=== PATIENT | male | born 1965 | race Asian ===

== ENCOUNTER 2023-10-29 05:38 | Inpatient (IN) | payer SELFPAY ==
[2023-10-29 06:01] LABS: Absolute Lymphocytes (CBC) 1.5 K/uL (0.7-4.9); Hematocrit 35.3 % (39.6-49.0); Lymphocytes % 24.7 % (15.3-44.8); MCV 84.8 fL (80-100); MPV 7.8 fL (7.6-11.3); Platelets 351 thou/uL (152-406); RBC Red Blood Cell Count 4.17 M/uL (4.33-5.43)
[2023-10-29 06:15] LABS: Protime INR 0.9
[2023-10-29 06:20] LABS: ALT/SGPT 15 U/L (16-61); AST/SGOT 11 U/L (15-37); Albumin 2.6 g/dL (3.4-5.0); Alkaline Phosphatase 64 U/L (45-117); BUN Blood Urea Nitrogen 37 mg/dL (7-18); Bicarbonate 28 mEq/L (21-32); Bilirubin Total 0.2 mg/dL (0.2-1.0); Glomerular Filtration Rate 38 ml/min (=/>90); Glucose Level 357 mg/dL (74-106); Potassium 3.6 mEq/L (3.5-5.1); Protein, Total 6.7 g/dL (6.4-8.2); Sodium Level 133 mEq/L (136-145)
[2023-10-29 06:28] LABS: Bilirubin Direct < 0.1 mg/dL (0-0.2); Bilirubin Indirect, Calculated ND mg/dL (0.2-0.8)
[2023-10-29 06:32] LABS: Troponin High Sensitivity 432.5 pg/mL (<58.9)
--- NOTE | 2023-10-29 06:59 | ER ---
Nurse's Notes [facility] Name: Jonathan Pimentel Age: 58 yrs Sex: Male : 1965 Arrival Date: 10/29/2023 Time: 05:38 Bed 4 Private MD: Diagnosis: Transient ischemic attack;NSTEMI Presentation: 10/29 05:42 Chief complaint: Spouse and/or significant other states: reports he started having km8 dizziness around 0030 today, went to sleep then woke up recently still having dizziness, left eye is blurry, unsteady gait, and left facial droop. Coronavirus screen: Client denies travel out of the [place] in the last 14 days. Ebola Screen: No symptoms or risks identified at this time. Initial Sepsis Screen: Does the patient meet any 2 criteria? No. Patient's initial sepsis screen is negative. Does the patient have a suspected source of infection? No. Patient's initial sepsis screen is negative. Risk Assessment: Do you want to hurt yourself or someone else? Patient reports no desire to harm self or others. Onset of symptoms was October 29, 2023 at 00:30. 05:42 Method Of Arrival: Wheelchair km8 05:42 Acuity: CELESTE 2 km8 Triage Assessment: 05:44 General: Appears in no apparent distress. comfortable, Behavior is calm, cooperative, km8 appropriate for age. Pain: Denies pain. EENT: No signs and/or symptoms were reported regarding the EENT system. Neuro: Level of Consciousness is awake, alert, obeys commands, Oriented to person, place, time, situation, Weakness in left leg(s) Facial droop on left, Reports blurred vision in left eye dizziness. Cardiovascular: Capillary refill < 3 seconds Patient's skin is warm and dry. Respiratory: Airway is patent Respiratory effort is even, unlabored, Respiratory pattern is regular, symmetrical. GI: No signs and/or symptoms were reported involving the gastrointestinal system. : No signs and/or symptoms were reported regarding the genitourinary system. Derm: No signs and/or symptoms reported regarding the dermatologic system. Skin is intact, is healthy with good turgor, Skin is dry, Skin is pink, warm \T\ dry. normal, Skin temperature is warm. Musculoskeletal: Circulation, motion, and sensation intact. Range of motion: intact in all extremities, Reports weakness in left leg. Historical: - Allergies: 05:44 No Known Allergies; km8 - Home Meds: 05:44 None [Active]; km8 - PMHx: 05:44 None; km8 - PSHx: 05:44 None; km8 - Immunization history:: Client reports receiving the 2nd dose of the Covid vaccine, Flu vaccine is not up to date. - Social history:: Smoking status: Patient denies any tobacco usage or history of. Patient/guardian denies using alcohol, street drugs. Screenin:46 [facility] ED Fall Risk Assessment (Adult) History of falling in the last 3 months, km8 including since admission No falls in past 3 months (0 pts) Confusion or Disorientation No (0 pts) Intoxicated or Sedated No (0 pts) Impaired Gait Yes (1 pt) Mobility Assist Device Used No (0 pt) Altered Elimination No (0 pt) Score/Fall Risk Level 0 - 2 = Low Risk Oriented to surroundings, Maintained a safe environment, Educated pt \T\ family on fall prevention, incl call for assistance when getting out of bed, Assessed \T\ reinforced patient's understanding of fall precautions. Abuse screen: Denies threats or abuse. Denies injuries from another. Nutritional screening: No deficits noted. Tuberculosis screening: No symptoms or risk factors identified. 06:07 VAN Screening:. Anni Swallow Protocol Exclusion Criteria: Unable to remain alert for km8 testing: No NPO for medical/surgical reason by provider order No Head-of-bed restricted <30 degrees Tracheostomy tube present No No thin liquids due to preexisting dysphagia/baseline modified diet thickened liquids No Exclusion Criteria Result: Proceed Brief Cognitive Screen What is your name? Normal, Where are you right now? Normal, What year is it? Normal. Oral Mechanism Examination Facial Symmetry: Abnormal: left mouth droop. Motion: Normal, Lip Closure: Normal, Oral Mechanism Result: Abnormal: left mouth droop; ok to proceed. 3 oz Water Swallow Challenge: Pt able to drink all water without stopping, coughing, choking or throat clearing: Yes Result: PASS. Assessment: 05:46 General: see triage note/assessment. km8 07:00 Reassessment: Patient appears in no apparent distress at this time. No changes from km8 previously documented assessment. Patient and/or family updated on plan of care and expected duration. Pain level reassessed. Patient is alert, oriented x 3, equal unlabored respirations, skin warm/dry/pink. 07:26 Reassessment: No changes from previously documented assessment. Patient and/or family ap3 updated on plan of care and expected duration. Pain level reassessed. General: Appears in no apparent distress. Behavior is calm, cooperative, appropriate for age. Pain: Denies pain. Neuro: Level of Consciousness is awake, alert, obeys commands, Oriented to person, place, time, situation, Speech is normal. Cardiovascular: Patient's skin is warm and dry. Respiratory: Airway is patent Respiratory effort is even, unlabored, Respiratory pattern is regular, symmetrical. 08:51 General: report called to receiving nurse. ap3 Vital Signs: 05:42 BP 217 / 99; Pulse 62; Resp 16; Temp 97.1(IR); Pulse Ox 97% on R/A; Weight 62.6 kg (M); km8 Height 5 ft. 4 in. (R); Pain 0/10; 05:53 BP 204 / 89; Pulse 64; Resp 16; Pulse Ox 99% ; km8 06:00 BP 207 / 93; Pulse 60; Resp 16; Pulse Ox 98% on R/A; km8 06:30 BP 199 / 93; Pulse 59; Resp 16; Pulse Ox 97% on R/A; km8 07:27 BP 194 / 94; Pulse 59; Pulse Ox 96% on R/A; ap3 08:08 BP 188 / 93; Pulse 57; Pulse Ox 99% on R/A; ap3 08:41 BP 149 / 73; Pulse 58; Resp 15; Pulse Ox 98% on R/A; ap3 05:42 Body Mass Index 23.69 (62.60 kg, 162.56 cm) km8 05:42 Pain Scale: Adult km8 Y[place] Coma Score: 05:46 Eye Response: spontaneous(4). Motor Response: obeys commands(6). Verbal Response: km8 oriented(5). Total: 15. NIH Stroke Scale Scores: 06:04 NIHSS Score: 2 rt 06:11 NIHSS Score: 3 km8 ED Course: 05:42 Patient arrived in ED. km8 05:44 Triage completed. km8 05:44 Arm band placed on right wrist. km8 05:46 Fco Cartagena MD is Attending Physician. rt 05:46 Patient has correct armband on for positive identification. Bed in low position. Call km8 light in reach. Side rails up X2. front desk monitor on. Pulse ox on. NIBP on. Warm blanket given. 05:46 No provider procedures requiring assistance completed. Inserted saline lock: 18 gauge km8 in right antecubital area, using aseptic technique. Blood collected. 05:[address] by RN. km8 06:03 CT Head Angio In Process Unspecified. EDMS 06:03 CT Neck Angio In Process Unspecified. EDMS 06:04 CT Stroke Brain w/o Contrast In Process Unspecified. EDMS 06:34 Stroke CXR 1 View In Process Unspecified. EDMS 06:58 Taras Kohler MD is Hospitalizing Provider. rt 08:52 Provided Education on: need for admission. ap3 08:52 Patient admitted, IV remains in place. ap3 Administered Medications: 07:26 Drug: Aspirin PO 325 mg PO once Route: PO; ap3 08:52 Follow up: Response: No adverse reaction ap3 07:31 Not Given (Other Intervention Used): mg PO once la1 07:36 Drug: Atenolol PO 100 mg PO once Route: PO; ap3 08:52 Follow up: Response: Blood pressure is lowered ap3 07:36 Drug: HydrALAZINE PO 50 mg PO once Route: PO; ap3 08:52 Follow up: Response: Blood pressure is lowered ap3 08:52 Follow up: Response: Blood pressure is lowered ap3 Medication: 05:46 VIS not applicable for this client. km8 Point of Care Testing: Blood Glucose: 06:07 Blood Glucose: 321 mg/dL; km8 Ranges: Outcome: 06:58 Decision to Hospitalize by Provider. rt 08:51 Admitted to Med/surg accompanied by tech, via wheelchair, room 222, with chart, ap3 08:51 Condition: good 08:51 Instructed on the need for admit, 08:54 Patient left the ED. ap3 NIH Stroke Scale - NIH Stroke Score Date: 10/29/2023 Time: 06:04 Total Score = 2 10. Dysarthria (speech clarity - read or repeat words) - 1(Mild to Moderate) 11. Extinction and Inattention (visual/tactile/auditory/spatial/personal) - 0(No abnormality) 1a. Level of Consciousness (LOC) - 0(Alert) 1b. Level of Consciousness (LOC) (Month \T\ Age) - 0(Both) 1c. LOC Commands (Open \T\ Closes Eyes/Yarn Salvager) - 0(Both) 2. Best Gaze (Lateral Gaze Paresis) - 0(Normal) 3. Visual Field Loss - 0(No visual loss) 4. Facial Palsy - 1(Minor Paralysis) 5a. Left Arm: Motor (10-second hold) - 0(No drift) 5b. Right Arm: Motor (10-second hold) - 0(No drift) 6a. Left Leg: Motor (5-second hold - always test supine) - 0(No drift) 6b. Right Leg: Motor (5-second hold - always test supine) - 0(No drift) 7. Limb Ataxia (finger/nose \T\ heel/alicia - test with eyes open) - 0(Absent) 8. Sensory Loss (pinprick arms/legs/face) - 0(Normal) 9. Best Language: Aphasia (description/naming/reading) - 0(No aphasia) Initials: rt NIH Stroke Scale - NIH Stroke Score Date: 10/29/2023 Time: 06:11 Total Score = 3 10. Dysarthria (speech clarity - read or repeat words) - 0(Normal) 11. Extinction and Inattention (visual/tactile/auditory/spatial/personal) - 0(No abnormality) 1a. Level of Consciousness (LOC) - 0(Alert) 1b. Level of Consciousness (LOC) (Month \T\ Age) - 1(One) 1c. LOC Commands (Open \T\ Closes Eyes/Yarn Salvager) - 0(Both) 2. Best Gaze (Lateral Gaze Paresis) - 0(Normal) 3. Visual Field Loss - 0(No visual loss) 4. Facial Palsy - 1(Minor Paralysis) 5a. Left Arm: Motor (10-second hold) - 0(No drift) 5b. Right Arm: Motor (10-second hold) - 0(No drift) 6a. Left Leg: Motor (5-second hold - always test supine) - 0(No drift) 6b. Right Leg: Motor (5-second hold - always test supine) - 0(No drift) 7. Limb Ataxia (finger/nose \T\ heel/alicia - test with eyes open) - 0(Absent) 8. Sensory Loss (pinprick arms/legs/face) - 1(Mild to moderate loss) 9. Best Language: Aphasia (description/naming/reading) - 0(No aphasia) Initials: km8 Signatures: Dispatcher [employer] Lety Blair, RN RN ap3 Fco Cartagena MD MD rt Trini Queen RN RN km8 Too Cortes [facility]
--- NOTE | 2023-10-29 06:59 | EDPHYS ---
Physician Documentation [facility] Name: Jonathan Pimentel Age: 58 yrs Sex: Male : 1965 Arrival Date: 10/29/2023 Time: 05:38 Bed 4 Private MD: ED Physician Fco Cartagena HPI: 10/29 06:04 This 58 yrs old Male presents to ER via Wheelchair with complaints of Dizziness, rt left-sided facial droop, left-sided numbness. 06:04 Patient has a history of hypertension, hyperlipidemia, diabetes, states that he has not rt been taking his medications for some time. The patient reportedly noticed dizziness at about 1230, subsequently went to bed. The patient woke up just prior to arrival, he had a left-sided facial droop, left-sided numbness as well as a slurred speech. Denies other acute complaints at this time, symptoms are moderate in severity, no other aggravating or alleviating factors.. Historical: - Allergies: 05:44 No Known Allergies; km8 - Home Meds: 05:44 None [Active]; km8 - PMHx: 05:44 None; km8 - PSHx: 05:44 None; km8 - Immunization history:: Client reports receiving the 2nd dose of the Covid vaccine, Flu vaccine is not up to date. - Social history:: Smoking status: Patient denies any tobacco usage or history of. Patient/guardian denies using alcohol, street drugs. ROS: 06:04 Constitutional: Negative for fever, chills, and weight loss, Cardiovascular: Negative rt for chest pain, palpitations, and edema, Respiratory: Negative for shortness of breath, cough, wheezing, and pleuritic chest pain, Abdomen/GI: Negative for abdominal pain, nausea, vomiting, diarrhea, and constipation, MS/Extremity: Negative for injury and deformity, Skin: Negative for injury, rash, and discoloration, 06:04 Eyes: Positive for blurry vision, Negative for pain, 06:04 Neuro: Positive for numbness, speech changes, Exam: 06:04 Constitutional: This is a well developed, well nourished patient who is awake, alert, rt and in no acute distress. Chest/axilla: Normal chest wall appearance and motion. Nontender with no deformity. No lesions are appreciated. Cardiovascular: Regular rate and rhythm with a normal S1 and S2. No gallops, murmurs, or rubs. Normal PMI, no JVD. No pulse deficits. Respiratory: Lungs have equal breath sounds bilaterally, clear to auscultation and percussion. No rales, rhonchi or wheezes noted. No increased work of breathing, no retractions or nasal flaring. Abdomen/GI: Soft, non-tender, with normal bowel sounds. No distension or tympany. No guarding or rebound. No evidence of tenderness throughout. Skin: Warm, dry with normal turgor. Normal color with no rashes, no lesions, and no evidence of cellulitis. MS/ Extremity: Pulses equal, no cyanosis. Neurovascular intact. Full, normal range of motion. 06:04 Eyes: Extraocular muscles intact, no visual field deficit. 06:04 ECG was reviewed by the Attending Physician. 06:04 Neuro: Left-sided facial droop, dysarthria noted, no other speech changes, strength and sensation intact in upper and lower extremities, Vital Signs: 05:42 BP 217 / 99; Pulse 62; Resp 16; Temp 97.1(IR); Pulse Ox 97% on R/A; Weight 62.6 kg (M); [facility] Height 5 ft. 4 in. (R); Pain 0/10; 05:53 BP 204 / 89; Pulse 64; Resp 16; Pulse Ox 99% ; 8 06:00 BP 207 / 93; Pulse 60; Resp 16; Pulse Ox 98% on R/A; [facility] 06:30 BP 199 / 93; Pulse 59; Resp 16; Pulse Ox 97% on R/A; 8 07:27 BP 194 / 94; Pulse 59; Pulse Ox 96% on R/A; ap3 08:08 BP 188 / 93; Pulse 57; Pulse Ox 99% on R/A; ap3 08:41 BP 149 / 73; Pulse 58; Resp 15; Pulse Ox 98% on R/A; ap3 05:42 Body Mass Index 23.69 (62.60 kg, 162.56 cm) [facility] 05:42 Pain Scale: Adult [facility] NIH Stroke Scale Scores: 06:04 NIHSS Score: 2 rt 06:11 NIHSS Score: 3 [facility] [place] Coma Score: 05:46 Eye Response: spontaneous(4). Motor Response: obeys commands(6). Verbal Response: km8 oriented(5). Total: 15. MDM: 05:46 Patient medically screened. rt 06:58 Differential Diagnosis TIA, CVA, NSTEMI, cardiac event, dysrhythmia. Data reviewed: rt vital signs, nurses notes, lab test result(s), EKG, radiologic studies. Consideration of Admission/Observation Patient was admitted/placed on observation. Management of patient was discussed with the following: Hospitalist: Agrees to admit. I considered the following discharge prescriptions or medication management in the emergency department Medications were administered in the Emergency Department. See MAR. Independent interpretation of the following test(s) in the Emergency Department CT Scan: My interpretation is No intracranial hemorrhage syndrome interpretation of CT scan image. Discussion of test interpretation with radiology: I had a discussion with radiology regarding a test interpretation. CT angio is negative. Counseling: I had a detailed discussion with the patient and/or guardian regarding the historical points, exam findings, and any diagnostic results supporting the discharge/admit diagnosis, lab results, radiology results, the need for further work-up and treatment in the hospital. Response to treatment: the patient's symptoms have markedly improved after treatment. 10/29 05:46 Order name: Basic Metabolic Panel; Complete Time: 06:36 rt 10/29 05:46 Order name: CBC with Diff; Complete Time: 06:36 rt 10/29 05:46 Order name: Hepatic Function; Complete Time: 06:36 rt 10/29 05:46 Order name: High Sensitivity Troponin; Complete Time: 06:36 rt 10/29 05:46 Order name: Magnesium; Complete Time: 06:36 rt 10/29 05:46 Order name: Protime (+inr); Complete Time: 06:36 rt 10/29 05:46 Order name: Ptt, Activated; Complete Time: 06:36 rt 10/29 06:19 Order name: Glucose, Ancillary Testing; Complete Time: 06:36 EDMS 10/29 05:46 Order name: CT Head Angio rt 10/29 05:46 Order name: CT Neck Angio rt 10/29 05:46 Order name: CT Stroke Brain w/o Contrast rt 10/29 05:46 Order name: Stroke CXR 1 View rt 10/29 07:36 Order name: Echo with Doppler EDMS 10/29 07:36 Order name: Brain Wo Cont EDMS 10/29 05:46 Order name: EKG; Complete Time: 05:47 rt 10/29 07:35 Order name: CONS Physician Consult EDMS 10/29 05:46 Order name: Accucheck; Complete Time: 06:07 rt 10/29 05:46 Order name: Cardiac monitoring; Complete Time: 05:48 rt 10/29 05:46 Order name: EKG - Nurse/Tech; Complete Time: 06:01 rt 10/29 05:46 Order name: IV Saline Lock; Complete Time: 05:48 rt 10/29 05:46 Order name: Labs collected and sent; Complete Time: 05:48 rt 10/29 05:46 Order name: NPO; Complete Time: 05:48 rt 10/29 05:46 Order name: O2 Per Protocol; Complete Time: 05:48 rt 10/29 05:46 Order name: O2 Sat Monitoring; Complete Time: 05:48 rt 10/29 05:46 Order name: Stroke Swallow Screen; Complete Time: 06:07 rt EC:04 Rate is 62 beats/min. Rhythm is regular, 1st Degree Block with No ectopy. QRS [place] is rt Normal. ID interval is normal. QRS interval is normal. QT interval is normal. No Q waves. Clinical impression: NSR w/ Non-specific ST/T Changes. Administered Medications: 07:26 Drug: Aspirin PO 325 mg PO once Route: PO; ap3 08:52 Follow up: Response: No adverse reaction ap3 07:31 Not Given (Other Intervention Used): [id number] mg PO once la1 07:36 Drug: Atenolol PO 100 mg PO once Route: PO; ap3 08:52 Follow up: Response: Blood pressure is lowered ap3 07:36 Drug: HydrALAZINE PO 50 mg PO once Route: PO; ap3 08:52 Follow up: Response: Blood pressure is lowered ap3 08:52 Follow up: Response: Blood pressure is lowered ap3 Point of Care Testing: Blood Glucose: 06:07 Blood Glucose: 321 mg/dL; km8 Ranges: Critical Glucose Levels:Adult <50 mg/dl or >400 mg/dl <40 mg/dl or >180 mg/dl Disposition Summary: 10/29/23 06:58 Hospitalization Ordered Notes: Hospitalization Status: Observation rt Provider: Taras Kohler rt Location: Telemetry/MedSurg (observation) rt Condition: Stable rt Problem: new rt Symptoms: have improved rt Bed/Room Type: Standard rt Room Assignment: 222(10/29/23 08:17) hb Diagnosis - Transient ischemic attack rt - NSTEMI rt Forms: - Medication Reconciliation Form rt - SBAR form rt - Leadership Thank You Letter rt NIH Stroke Scale - NIH Stroke Score Date: 10/29/2023 Time: 06:04 Total Score = 2 10. Dysarthria (speech clarity - read or repeat words) - 1(Mild to Moderate) 11. Extinction and Inattention (visual/tactile/auditory/spatial/personal) - 0(No abnormality) 1a. Level of Consciousness (LOC) - 0(Alert) 1b. Level of Consciousness (LOC) (Month \T\ Age) - 0(Both) 1c. LOC Commands (Open \T\ Closes Eyes/Food And Beverage Controller) - 0(Both) 2. Best Gaze (Lateral Gaze Paresis) - 0(Normal) 3. Visual Field Loss - 0(No visual loss) 4. Facial Palsy - 1(Minor Paralysis) 5a. Left Arm: Motor (10-second hold) - 0(No drift) 5b. Right Arm: Motor (10-second hold) - 0(No drift) 6a. Left Leg: Motor (5-second hold - always test supine) - 0(No drift) 6b. Right Leg: Motor (5-second hold - always test supine) - 0(No drift) 7. Limb Ataxia (finger/nose \T\ heel/alicia - test with eyes open) - 0(Absent) 8. Sensory Loss (pinprick arms/legs/face) - 0(Normal) 9. Best Language: Aphasia (description/naming/reading) - 0(No aphasia) Initials: rt NIH Stroke Scale - NIH Stroke Score Date: 10/29/2023 Time: 06:11 Total Score = 3 10. Dysarthria (speech clarity - read or repeat words) - 0(Normal) 11. Extinction and Inattention (visual/tactile/auditory/spatial/personal) - 0(No abnormality) 1a. Level of Consciousness (LOC) - 0(Alert) 1b. Level of Consciousness (LOC) (Month \T\ Age) - 1(One) 1c. LOC Commands (Open \T\ Closes Eyes/Food And Beverage Controller) - 0(Both) 2. Best Gaze (Lateral Gaze Paresis) - 0(Normal) 3. Visual Field Loss - 0(No visual loss) 4. Facial Palsy - 1(Minor Paralysis) 5a. Left Arm: Motor (10-second hold) - 0(No drift) 5b. Right Arm: Motor (10-second hold) - 0(No drift) 6a. Left Leg: Motor (5-second hold - always test supine) - 0(No drift) 6b. Right Leg: Motor (5-second hold - always test supine) - 0(No drift) 7. Limb Ataxia (finger/nose \T\ heel/alicia - test with eyes open) - 0(Absent) 8. Sensory Loss (pinprick arms/legs/face) - 1(Mild to moderate loss) 9. Best Language: Aphasia (description/naming/reading) - 0(No aphasia) Initials: km8 Signatures: Dispatcher [employer] EDMS Too Cortes, HIGH RIGGER-C HIGH RIGGER-Cla1 Kayleen Mccormick RN RN hb Lety Peña RN RN ap3 Fco Cartagena MD MD rt Trini Queen RN RN km8 Corrections: (The following items were deleted from the chart) 08:17 06:58 rt hb
[2023-10-29] MEDS ORDERED: ASPIRIN 81 MG CHEWABLE TABLET ONE (07:15)
[2023-10-29] MEDS ORDERED: HYDRALAZINE HCL 25 MG TABLET ONE (07:33)
[2023-10-29] MEDS ORDERED: atenoloL 50 MG TAB ONE (07:34)
--- NOTE | 2023-10-29 08:28 | RAD REPORT ---
EXAM DESCRIPTION: RAD - Chest Single View - 10/29/2023 6:32 am CLINICAL HISTORY: cva Chest pain. COMPARISON: No comparisons FINDINGS: Portable technique limits examination quality. The lungs are grossly clear. The heart is normal in size. No displaced fractures. IMPRESSION: No acute intrathoracic process suspected.
[2023-10-29] MEDS ORDERED: ONDANSETRON 4 MG/2 ML VIAL IV PRN (09:49)
[2023-10-29] MEDS: HYDRALAZINE HCL 25 MG TABLET PO SCH ×2 (10:15→21:11)
[2023-10-29] MEDS: NA CHLORIDE 0.9% 1,000 ML IV SCH ×2 (10:34→23:53)
[2023-10-29] MEDS: AMLODIPINE 10 MG TAB PO SCH (10:35)
[2023-10-29] MEDS: ASPIRIN EC 81 MG TAB PO SCH (10:35)
[2023-10-29] MEDS: CLOPIDOGREL 75 MG TABLET PO SCH (10:35)
[2023-10-29] MEDS: FOLIC ACID 1 MG TABLET PO SCH (10:35)
[2023-10-29] MEDS: HEPARIN 5000 UNIT/ML 1 ML VIAL SQ SCH ×2 (10:36→21:11)
--- NOTE | 2023-10-29 11:25 | P.CNS ---
Date of Consult: 10/29/23 Reason for Consult: ANDREA/ CKD Requesting Physician: Taras Kohler Chief Complaint: Dizziness History of Present Illness: 06:04 This 58 yrs old Male presents to ER via Wheelchair with complaints of Dizziness, rt left-sided facial droop, left-sided numbness. 06:04 Patient has a history of hypertension, hyperlipidemia, diabetes, states that he has not rt been taking his medications for some time. The patient reportedly noticed dizziness at about 1230, subsequently went to bed. The patient woke up just prior to arrival, he had a left-sided facial droop, left-sided numbness as well as a slurred speech. Denies other acute complaints at this time, symptoms are moderate in severity, no other aggravating or alleviating factors.. 58-year-old male with history of hypertension, hyperlipidemia, pvb-rgwhcco-wdfolryyh diabetes, iron deficiency anemia and likely some degree of CKD presented to the emergency department chief complaint of left-sided facial droop, unsteady gait, dysarthria. He reports that he took a shower around midnight and after the shower was having dizziness, trouble walking and subsequently went to sleep. When he woke up in the morning his symptoms had worsened, for that reason his family brought him to the emergency department. He was underwent for TNK and his symptoms seem to be improving. He was evaluated in the emergency department CT of his head without contrast was negative for acute findings, CT angiogram of the head and neck showed no large vessel occlusions or other stenotic findings. Labs were significant for a creatinine of 2.0, glucose 357 initial high sensitive troponin 432.5. No labs available for comparison of creatinine although family does mention that his primary care doctor had discussed some degree of elevated kidney function in the past. He denies NSAIDs. He denies difficulty with urination. He reports being told about his kidneys in the past. No known family hx of CKD. Allergies No Known Allergies Allergy (Unverified 10/29/23 08:16) Home medications list reviewed: Yes - Past Medical/Surgical History Diabetic: Yes -: HTN -: DM II -: HLD -: CKD (Dr. Patricia/ Dr. Whatley) - Family History Brother Medical History: Hypertension, Diabetes, Stroke - Social History Smoking Status: Never smoker Alcohol use: Yes CD- Drugs: No Review of Systems 10-point ROS is otherwise unremarkable General: Weakness, Malaise Physical Examination General: In no apparent distress, Oriented x3, Cooperative HEENT: Atraumatic Neck: Supple Respiratory: Clear to auscultation bilaterally Cardiovascular: No edema, Regular rate/rhythm Gastrointestinal: Soft and benign, Non-distended Musculoskeletal: No clubbing, No contractures Integumentary: No rashes, No cyanosis Neurological: Normal speech Laboratory Data (last 24 hrs) 10/29/23 10/29/23 10/29/23 05:52 05:52 05:52 WBC 6.30 Hgb 12.1 L Hct 35.3 L Plt Count 351 PT 9.9 INR 0.90 APTT 35.7 Sodium 133 L Potassium 3.6 BUN 37 H Creatinine 2.00 H Glucose 357 H Magnesium 2.0 Total Bilirubin 0.2 AST 11 L ALT 15 L Alkaline Phosphatase 64 Imagings Data: EXAM DESCRIPTION: RAD - Chest Single View - 10/29/2023 6:32 am CLINICAL HISTORY: cva Chest pain. COMPARISON: No comparisons FINDINGS: Portable technique limits examination quality. The lungs are grossly clear. The heart is normal in size. No displaced fractures. IMPRESSION: No acute intrathoracic process suspected. Conclusions/Impression: Stage I ANDREA CKD III with Proteinuria -No NSAIDs; caution with IVC -Contiinue IVF with NS -Renal US pending Hyponatremia -Continue IVF with NS HTN with CKD -Continue Atenolol -Continue Hydralazine -Continue Amlodipine DM II with CKD -RISS Hypoalbuminemia -Consider protein supplementation -Check urine protein Anemia in chronic illness -Monitor H&H Hospitalist and ER notes reviewed Thank you kindly for the consultation
--- NOTE | 2023-10-29 12:01 | P.HP ---
Certification for Inpatient Patient admitted to: Inpatient With expected LOS: >2 Midnights Patient will require the following post-hospital care: None Practitioner: I am a practitioner with admitting privileges, knowledge of patient current condition, hospital course, and medical plan of care. Services: Services provided to patient in accordance with Admission requirements found in Title 42 Section 412.3 of the Code of Federal Regulations Patient History Date of Service: 10/29/23 Reason for admission: Dizziness History of Present Illness: 58-year-old male with history of hypertension, hyperlipidemia, hde-hilunpe-fborryekp diabetes, iron deficiency anemia and likely some degree of CKD presented to the emergency department chief complaint of left-sided facial droop, unsteady gait, dysarthria. He reports that he took a shower around midnight and after the shower was having dizziness, trouble walking and subsequently went to sleep. When he woke up in the morning his symptoms had worsened, for that reason his family brought him to the emergency department. He was underwent for TNK and his symptoms seem to be improving. He was evaluated in the emergency department CT of his head without contrast was negative for acute findings, CT angiogram of the head and neck showed no large vessel occlusions or other stenotic findings. Labs were significant for a creatinine of 2.0, glucose 357 initial high sensitive troponin 432.5. No labs available for comparison of creatinine although family does mention that his primary care doctor had discussed some degree of elevated kidney function in the past. 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 moist/pink Neck: Supple, 2+ carotid pulse no bruit, No LAD Respiratory: Clear to auscultation bilaterally, Normal air movement Cardiovascular: Regular rate/rhythm, Normal S1 S2 Gastrointestinal: Normal bowel sounds, No tenderness Musculoskeletal: No tenderness Integumentary: No rashes Neurological: Normal gait, Normal speech, Normal strength at 5/5 x4 extr, Normal affect, Other (NIH score 0) - Studies Laboratory Data (last 24 hrs) 10/29/23 10/29/23 10/29/23 05:52 05:52 05:52 WBC 6.30 Hgb 12.1 L Hct 35.3 L Plt Count 351 PT 9.9 INR 0.90 APTT 35.7 Sodium 133 L Potassium 3.6 BUN 37 H Creatinine 2.00 H Glucose 357 H Magnesium 2.0 Total Bilirubin 0.2 AST 11 L ALT 15 L Alkaline Phosphatase 64 Assessment and Plan - Plan Assessment: Left-sided facial droop, dysarthria, ataxia-improved suspect TIA NSTEMI Hypertension ANDREA/CKD Diabetes most type ODbqt-uynfmod-gagnfxtes with hyperglycemia Hyperlipidemia Plan: Left-sided facial droop, dysarthria, ataxia-improved suspect TIA NIH score currently 0-did not receive TNK MRI, echocardiogram ordered CT head and neck angio negative for stenotic findings/large vessel occlusion Continue aspirin, statin, Plavix, folic acid Neurology consult, PT consult NSTEMI Possibly demand ischemia related to significant uncontrolled hypertension Denies chest pain Monitor on telemetry, trend troponins Continue with aspirin, statin, Plavix Cardiology consult in place, echocardiogram ordered Hypertension Home atenolol, hydralazine, amlodipine continued May require further titration ANDREA/CKD Unknown renal function baseline Family does report him being told in the past he had some elevated kidney function Continue gentle IV fluids, nephrology consult Diabetes most type EMbpp-tkxehvh-moicxesrh with hyperglycemia ACHS Accu-Chek, sliding scale insulin A1c in the morning Hyperlipidemia Continue statin DVT PPX: Lovenox Code status: Full Discharge Plan: Home Plan to discharge in: 48 Hours - Advance Directives Does patient have a Living Will: No Does patient have a Durable POA for Healthcare: No - Code Status/Comfort Care Code Status Assessed: Yes (Full code) Critical Care: No Time Spent Managing Pts Care (In Minutes): 70
[2023-10-29] MEDS: INSULIN REGULAR (HUMAN) 100 UNIT/ML SQ SCH ×3 (12:20→21:11)
[2023-10-29 13:18] LABS: Phosphorus 3.4 mg/dL (2.5-4.9)
--- NOTE | 2023-10-29 13:31 | RAD REPORT ---
EXAM DESCRIPTION: US - Renal Ultrasound-Complete - 10/29/2023 1:21 pm CLINICAL HISTORY: omkar Flank pain COMPARISON: No comparisons FINDINGS: Both kidneys are normal in size, shape and echotexture. The right kidney measures 10.3 x 6.5 x 6.4 cm. No hydronephrosis, focal mass or perinephric fluid. The left kidney measures 10.6 x 5.5 x 4.8 cm. No hydronephrosis, focal mass or perinephric fluid. The urinary bladder is incompletely distended without gross abnormality seen. IMPRESSION: Unremarkable renal sonogram.
[2023-10-29 13:32] LABS: Troponin High Sensitivity 448.2 pg/mL (<58.9)
[2023-10-29 13:43] VITALS: BMI 23.5
[2023-10-29] MEDS ORDERED: INFLUENZA VACCINE (for 6+ mo) 0.5 ML DOSE IMVAC ONE (14:00)
[2023-10-29 18:19] LABS: Specific Gravity > 1.030 (1.005-1.030); Urine Bacteria None Seen /HPF (<20); Urine Bilirubin NEGATIVE (Negative); Urine Blood Negative (Negative); Urine Clarity Clear (Clear); Urine Color Colorless (Yellow); Urine Glucose 4+ (Over) (Negative); Urine Protein 3+ (Negative); Urine RBC <5 /HPF (None Seen); Urine Urobilinogen Normal (Normal)
[2023-10-29] MEDS: ATORVASTATIN 40 MG TAB PO SCH (21:11)
--- NOTE | 2023-10-29 21:33 | RAD REPORT ---
EXAM DESCRIPTION: ADDENDUM #1 Critical findings were discussed with and acknowledged by Dr. Fco Cartagena on 10/29/2023 6:32 AM PENSION ADVISER . Electronically signed by: Travis Whalen MD 10/29/2023 06:45 AM PENSION ADVISER End of Addendum CLINICAL HISTORY: STROKE ALERT COMPARISON: None. TECHNIQUE: CT HEAD WITHOUT IV CONTRAST on 10/29/2023 5:46 AM PENSION ADVISER This exam was performed according to our departmental dose-optimization program, which includes autom ated exposure control, adjustment of the mA and/or kV according to patient size and/or use of iterati ve reconstruction technique. FINDINGS: There is no acute hemorrhage, mass effect or midline shift. There is a small old lacunar i nfarct in the right caudate head. There is no hydrocephalus. There is no significant volume loss for age. The calvarium is intact. Orbits and globes are unremarkable. There is moderate thickening of the left maxillary sinus. Mastoid air cells are clear. IMPRESSION: No acute intracranial findings. Electronically signed by: Travis Whalen MD 10/29/2023 06:16 AM PENSION ADVISER Due to temporary technical issues with the PACS/Fluency reporting system, reports are being signed by the in house radiologists without review as a courtesy to insure prompt reporting. The interpreting radiologist is fully responsible for the content of the report.
--- NOTE | 2023-10-29 21:37 | RAD REPORT ---
EXAM DESCRIPTION: ADDENDUM #1 Critical findings were discussed with and acknowledged by Dr. Fco Cartagena on 10/29/2023 6:32 AM POCKET STITCHER . Electronically signed by: Travis Whalen MD 10/29/2023 06:44 AM POCKET STITCHER End of Addendum CLINICAL HISTORY: STROKE ALERT COMPARISON: None. TECHNIQUE: CT HEAD ANGIOGRAPHY WITH IV CONTRAST, CT NECK ANGIOGRAPHY WITH IV CONTRAST on 10/29/2023 5: 46 AM POCKET STITCHER This exam was performed according to our departmental dose-optimization program, which includes autom ated exposure control, adjustment of the mA and/or kV according to patient size and/or use of iterati ve reconstruction technique. MIP reconstructions were generated. Stenoses are calculated by NASCET criteria. FINDINGS: The visualized aortic arch and origins of the great vessels unremarkable. Left thyroid nod ule measures 3.2 cm. The common carotid arteries are patent and symmetric bilaterally. No hemodynamically significant stenosis is observed at the common carotid bifurcations or origins of the internal carotid arteries bilaterally. Vertebral arteries are unremarkable without evidence of pseudoaneurysm, hemodynamically significant s tenosis, or dissection. Intracranially the cavernous segments of the internal carotid arteries are patent and symmetric bilat erally. Vertebral basilar system within normal limits for age. No aneurysm identified within the [place]. Anterior, middle, and posterior cerebral circulat ions are patent and symmetric bilaterally. Dural sinuses are well opacified and without filling defect. IMPRESSION: Unremarkable CT angiogram of the neck for age without dissection or hemodynamically sign ificant stenosis. Unremarkable CTA of the brain without evidence of hemodynamically significant stenosis, aneurysm or A VM. 3.2 cm incidental left thyroid nodule. Recommend non-emergent thyroid ultrasound. Reference: J Am Kris Radiol. 2015 Nov;12(2): 143-50 CAROTID STENOSIS REFERENCE USING NASCET CRITERIA: % ICA stenosis = (1 - narrowest ICA diameter/diameter of distal cervical ICA) x 100. Mild - <50% stenosis. Moderate - 50-69% stenosis. Severe - 70-94% stenosis. Near occlusion - 95-99% stenosis. Occluded - 100% stenosis. Electronically signed by: Travis Whalen MD 10/29/2023 06:29 AM POCKET STITCHER Due to temporary technical issues with the PACS/Fluency reporting system, reports are being signed by the in house radiologists without review as a courtesy to insure prompt reporting. The interpreting radiologist is fully responsible for the content of the report.
--- NOTE | 2023-10-29 21:38 | RAD REPORT ---
EXAM DESCRIPTION: ADDENDUM #1 Critical findings were discussed with and acknowledged by Dr. Fco Cartagena on 10/29/2023 6:32 AM BEHAVIORAL ANALYST . Electronically signed by: Travis Whalen MD 10/29/2023 06:44 AM BEHAVIORAL ANALYST End of Addendum CLINICAL HISTORY: STROKE ALERT COMPARISON: None. TECHNIQUE: CT HEAD ANGIOGRAPHY WITH IV CONTRAST, CT NECK ANGIOGRAPHY WITH IV CONTRAST on 10/29/2023 5: 46 AM BEHAVIORAL ANALYST This exam was performed according to our departmental dose-optimization program, which includes autom ated exposure control, adjustment of the mA and/or kV according to patient size and/or use of iterati ve reconstruction technique. MIP reconstructions were generated. Stenoses are calculated by NASCET criteria. FINDINGS: The visualized aortic arch and origins of the great vessels unremarkable. Left thyroid nod ule measures 3.2 cm. The common carotid arteries are patent and symmetric bilaterally. No hemodynamically significant stenosis is observed at the common carotid bifurcations or origins of the internal carotid arteries bilaterally. Vertebral arteries are unremarkable without evidence of pseudoaneurysm, hemodynamically significant s tenosis, or dissection. Intracranially the cavernous segments of the internal carotid arteries are patent and symmetric bilat erally. Vertebral basilar system within normal limits for age. No aneurysm identified within the [place]. Anterior, middle, and posterior cerebral circulat ions are patent and symmetric bilaterally. Dural sinuses are well opacified and without filling defect. IMPRESSION: Unremarkable CT angiogram of the neck for age without dissection or hemodynamically sign ificant stenosis. Unremarkable CTA of the brain without evidence of hemodynamically significant stenosis, aneurysm or A VM. 3.2 cm incidental left thyroid nodule. Recommend non-emergent thyroid ultrasound. Reference: J Am Kris Radiol. 2015 Nov;12(2): 143-50 CAROTID STENOSIS REFERENCE USING NASCET CRITERIA: % ICA stenosis = (1 - narrowest ICA diameter/diameter of distal cervical ICA) x 100. Mild - <50% stenosis. Moderate - 50-69% stenosis. Severe - 70-94% stenosis. Near occlusion - 95-99% stenosis. Occluded - 100% stenosis. Electronically signed by: Travis Whalen MD 10/29/2023 06:29 AM BEHAVIORAL ANALYST Due to temporary technical issues with the PACS/Fluency reporting system, reports are being signed by the in house radiologists without review as a courtesy to insure prompt reporting. The interpreting radiologist is fully responsible for the content of the report.
[2023-10-30 03:26] LABS: Absolute Lymphocytes (CBC) 1.8 K/uL (0.7-4.9); Hematocrit 33.9 % (39.6-49.0); Lymphocytes % 28.9 % (15.3-44.8); MCV 85.4 fL (80-100); MPV 8.1 fL (7.6-11.3); Platelets 290 thou/uL (152-406); RBC Red Blood Cell Count 3.97 M/uL (4.33-5.43)
[2023-10-30 03:53] LABS: Magnesium 1.9 mg/dL (1.6-2.4); Potassium 3.7 mEq/L (3.5-5.1); Thyroid Stimulating Hormone 1.28 uIU/mL (0.358-3.740)
[2023-10-30] MEDS: atenoloL 50 MG TAB PO SCH (06:09)
[2023-10-30] MEDS: INSULIN REGULAR (HUMAN) 100 UNIT/ML SQ SCH ×4 (07:30→20:25)
[2023-10-30] MEDS: HYDRALAZINE HCL 25 MG TABLET PO SCH ×2 (09:08→20:25)
[2023-10-30] MEDS: CLOPIDOGREL 75 MG TABLET PO SCH (09:08)
[2023-10-30] MEDS: ASPIRIN EC 81 MG TAB PO SCH (09:09)
[2023-10-30] MEDS: AMLODIPINE 10 MG TAB PO SCH (09:09)
[2023-10-30] MEDS: FOLIC ACID 1 MG TABLET PO SCH (09:09)
[2023-10-30] MEDS: HEPARIN 5000 UNIT/ML 1 ML VIAL SQ SCH ×2 (09:11→20:25)
--- NOTE | 2023-10-30 10:07 | P.PN ---
Date of Service: 10/30/23 Subjective: Developed some diplopia overnight Ambulatory with minimal to no assistance Have difficulty with left leg ROS: 10 point ROS as noted above, otherwise negative Physical exam GEN: Alert, oriented, NAD HEENT: Normal conjunctiva, sclera anicteric CV: Regular rate and rhythm, no edema Pulm: Nonlabored respirations on room air ABD: Soft, nontender, nondistended MSK: No joint tenderness Integumentary: No rashes Neuro: Normal speech, normal affect, upper visual [place] diminished bilaterally, diplopia present primarily farsighted Vitals reviewed Problem List Assessment: Left-sided facial droop, dysarthria, ataxia-improved suspect TIA NSTEMI Hypertension ANDREA/CKD Diabetes most type SUrns-mahcuyl-kzvhnfmyr with hyperglycemia Hyperlipidemia Plan: Left-sided facial droop, dysarthria, ataxia-improved suspect TIA NIH score currently 0-did not receive TNK MRI, echocardiogram ordered CT head and neck angio negative for stenotic findings/large vessel occlusion Continue aspirin, statin, Plavix, folic acid Neurology consult, PT consult Developed diplopia-primarily effecting far sight Upper visual [place] diminished jessy NSTEMI Possibly demand ischemia related to significant uncontrolled hypertension Denies chest pain, Monitor on telemetry troponins trended flat Continue with aspirin, statin, Plavix Cardiology consult in place, echocardiogram ordered Hypertension Home atenolol, hydralazine, amlodipine continued May require further titration ANDREA/CKD Unknown renal function baseline Family does report him being told in the past he had some elevated kidney fun ction Continue gentle IV fluids, nephrology consult some improvement overnight Diabetes most type PWwlg-dilffjx-mitqmatna with hyperglycemia ACHS Accu-Chek, sliding scale insulin A1c still pending Hyperlipidemia Continue statin DVT PPX: Lovenox Code status: Reel Cart Operator Spent Managing Pts Care (In Minutes): 35
[2023-10-30 10:28] VITALS: O2SAT 98
[2023-10-30] MEDS: NA CHLORIDE 0.9% 1,000 ML IV SCH (12:44)
[2023-10-30] MEDS: ATORVASTATIN 40 MG TAB PO SCH (20:25)
[2023-10-31 01:10] LABS: Specific Gravity 1.009 (1.005-1.030); Urine Bacteria None Seen /HPF (<20); Urine Bilirubin NEGATIVE (Negative); Urine Blood Negative (Negative); Urine Clarity Clear (Clear); Urine Color Colorless (Yellow); Urine Glucose 4+ (Over) (Negative); Urine Mucus Slight /HPF (None Seen); Urine Protein 2+ (Negative); Urine RBC None Seen /HPF (None Seen); Urine Urobilinogen Normal (Normal)
[2023-10-31] MEDS: NA CHLORIDE 0.9% 1,000 ML IV SCH (01:29)
[2023-10-31 02:15] LABS: UR PROTEIN 144.8 mg/dL (<11.9); Urine Protein/Creatinine Ratio 3.71 ratio (<0.15)
[2023-10-31 03:33] LABS: Hematocrit 33.1 % (39.6-49.0); MCV 84.9 fL (80-100)
[2023-10-31 03:34] LABS: Absolute Lymphocytes (CBC) 1.6 K/uL (0.7-4.9); MPV 8.2 fL (7.6-11.3); Platelets 278 thou/uL (152-406)
[2023-10-31 03:36] LABS: Magnesium 2.1 mg/dL (1.6-2.4)
[2023-10-31] MEDS: atenoloL 50 MG TAB PO SCH (05:27)
[2023-10-31] MEDS: INSULIN REGULAR (HUMAN) 100 UNIT/ML SQ SCH ×4 (07:30→20:51)
[2023-10-31] MEDS ORDERED: HYDRALAZINE HCL 20 MG/ML VIAL IV PRN (08:22)
[2023-10-31] MEDS: INSULIN GLARGINE 100 UNIT/ML SQ SCH (09:00)
[2023-10-31] MEDS ORDERED: REGADENOSON 0.4 MG/5 ML SYR IV ONE (09:02)
--- NOTE | 2023-10-31 09:41 | RAD REPORT ---
EXAM DESCRIPTION: MRI - Brain Wo Cont - 10/31/2023 9:12 am CLINICAL HISTORY: CVA vs TIA, left sided weakness, dizziness, gait Headache, drowsiness, CVA symptomology COMPARISON: Head angio dated 10/29/2023; Ct Stroke Brain Wo Cont dated 10/29/2023 TECHNIQUE: Multi-sequence, multiplanar MR imaging of the brain was performed without contrast. FINDINGS: No intracranial hemorrhage, hydrocephalus or extra-axial fluid collections.Mild brain atro phy. No edema or shift of midline structures. No findings to suspect brain mass. 8 mm acute CVA is se en along the right medial midbrain. Midline structures are normally formed. Mastoid air cells and paranasal sinuses are clear. IMPRESSION: Nonhemorrhagic 8 mm acute CVA right medial midbrain.
--- NOTE | 2023-10-31 11:31 | CON ---
Date of Consultation: 10/31/2023 Reason For Consultation: Elevated troponin. History Of Present Illness: A 58-year-old male, history of dyslipidemia, diabetes, hypertension, and chronic kidney disease, presented with left-sided facial droop, unsteady gait, and denied having any chest pain, no shortness of breath. Troponin was slightly elevated upon arrival and he was diagnose d with acute stroke and he denies having any chest pain. Past Medical History: As outlined above in the HPI. Medications: Refer to reconciliation sheet for detailed list. Allergies: NO KNOWN DRUG ALLERGIES. Family History: No premature coronary artery disease or cancer. Social History: Does not smoke or drink. Does not use any drugs. Review of Systems: All systems reviewed and they are negative except as mentioned in HPI. Physical Examination: Vital Signs: Reviewed. Head and Neck: Pupils are equal, reactive to light. Intact eye movements. No JVD. No cervical lym phadenopathy. Neck is supple. Thyroid is not enlarged. Lungs: Clear to auscultation bilaterally. No rhonchi, rales, or crackles. No accessory muscle use. Heart: Regular rate and rhythm. No extra sounds. Abdomen: Soft, nontender. Bowel sounds positive. No organomegaly. No masses or hernia. No rigidi ty or rebound. Extremities: No clubbing or cyanosis. Intact pulses. Skin: No rash. No eczema. Neurologic: Alert, awake, oriented x3 with left-sided weakness. Lymph Nodes: No cervical or axillary lymphadenopathy. Investigations: CT angiogram of the neck is unremarkable and troponin was 432, down to 417. Assessment/recommendation: 1.Elevated troponin. This is likely due to the acute stroke. He does not have any chest pain. He will need a stress test once he recover from the stroke. In the interim, recommend baby aspirin and obtain an echocardiogram. 2.Acute CVA. Obtain an echo and monitor on telemetry for atrial fibrillation and Neurology evaluati on. SR/MODL Voice ID: [id number] Report ID: [id number]
[2023-10-31] MEDS: AMLODIPINE 10 MG TAB PO SCH (12:12)
[2023-10-31] MEDS: ASPIRIN EC 81 MG TAB PO SCH (12:15)
[2023-10-31] MEDS: HYDRALAZINE HCL 25 MG TABLET PO SCH ×2 (12:15→20:50)
[2023-10-31] MEDS: CLOPIDOGREL 75 MG TABLET PO SCH (12:15)
[2023-10-31] MEDS: HEPARIN 5000 UNIT/ML 1 ML VIAL SQ SCH ×2 (12:16→20:50)
[2023-10-31] MEDS: FOLIC ACID 1 MG TABLET PO SCH (12:16)
--- NOTE | 2023-10-31 12:27 | EKG ---
Test Date: 2023-10-29 Test Time: 05:44:04 Senior Systems Programmer: IMELDA MEASUREMENT RESULTS: Intervals: Rate: 62 IA: 212 QRSD: 98 QT: 416 QTc: 422 Peck: P: 75 IA: 212 QRS: 58 T: -34 INTERPRETIVE STATEMENTS: Sinus rhythm with 1st degree AV block T wave abnormality, consider inferior ischemia Abnormal ECG No previous ECG available for comparison Electronically Signed On 10-31-23 12:21:00 JANITORIAL ACCOUNT MANAGER by Tra Ellsworth
--- NOTE | 2023-10-31 12:49 | P.PN ---
Date of Service: 10/31/23 Subjective: Diplopia improved overnight, ambulating to bathroom ROS: 10 point ROS as noted above, otherwise negative Physical exam GEN: Alert, oriented, NAD HEENT: Normal conjunctiva, sclera anicteric CV: Regular rate and rhythm, no edema Pulm: Nonlabored respirations on room air ABD: Soft, nontender, nondistended MSK: No joint tenderness Integumentary: No rashes Neuro: Normal speech, normal affect, upper visual [place] diminished bilaterally, diplopia present primarily farsighted, mildly abn left heel to alicia Vitals reviewed Problem List Left-sided facial droop, dysarthria, ataxia secondary to 8 mm acute CVA right medial midbrain NSTEMI Hypertension ANDREA/CKD Diabetes most type FFceg-ikxzgza-gnqunqjle with hyperglycemia Hyperlipidemia Plan: Left-sided facial droop, dysarthria, ataxia secondary to 8 mm acute CVA right medial midbrain NIH score currently 0-did not receive TNK CT head and neck angio negative for stenotic findings/large vessel occlusion Continue aspirin, statin, Plavix, folic acid Neurology consult, PT consult Developed diplopia-primarily effecting far sight-resolved 10/31 Upper visual [place] diminished jessy NSTEMI Possibly demand ischemia related to significant uncontrolled hypertension Denies chest pain, Monitor on telemetry troponins trended flat Continue with aspirin, statin, Plavix Cardiology consult in place, echocardiogram ordered Was planned for stress test but with acute CVA this was deferred await echo Hypertension Home atenolol, hydralazine, amlodipine continued May require further titration ANDREA/CKD Unknown renal function baseline Family does report him being told in the past he had some elevated kidney function Continue gentle IV fluids, nephrology consult some improvement overnight nephrology suspects CKD 3 Diabetes most type QMzfi-jcroicb-zzqbymdtu with hyperglycemia ACHS Accu-Chek, sliding scale insulin A1c 13.1 Started on long acting insulin-Semglee 10/31 Hyperlipidemia Continue statin DVT PPX: Lovenox Code status: Foundation Coordinator Spent Managing Pts Care (In Minutes): 35 <Too Cortes - Last Filed: 10/31/23 12:46> Patient seen and examined on rounds this morning. Plan of care discussed with WELDER/INSTALLER Sophia. Agree with plan as noted above with the following additions/corrections: MRI positive for 8 mm acute CVA of the right medial midbrain Patient with abnormal ekbw-vu-dmlg testing of left leg, mild No longer having double vision Otherwise has been ambulating much better MRI findings would be consistent with exam Discussed with patient and his at bedside Recommended tight glycemic control, will need insulin on discharge Continue antihypertensives, titrate as appropriate Cardiology recommended obtaining echocardiogram today <Taras Kohler - Last Filed: 10/31/23 17:01>
--- NOTE | 2023-10-31 14:02 | ECHO ---
HEIGHT: 5 ft 4 in WEIGHT: 137 lb 9.095 oz DATE OF STUDY: 10/31/[address]: Too Cortes NP 2-DIMENSIONAL: YES M.MODE: YES DOPPLER: YES COLOR FLOW: YES TDS: PORTABLE: YES DEFINITY: BUBBLE STUDY: DIAGNOSIS: NON ST ELEVATION MYOCARDIAL INFARCTION, TRANSIENT ISCHEMIC ATTACK CARDIAC HISTORY: CATHERIZATION: NO SURGERY: NO PROSTHETIC VALVE: NO PACEMAKER: NO MEASUREMENTS (cm) DIASTOLIC (NORMALS) SYSTOLIC (NORMALS) IVSd 1.0 (0.6-1.2) LA Diam 3.7 (1.9-4.0) LVEF 63% LVIDd 4.4 (3.5-5.7) LVIDs 2.9 (2.0-3.5) %FS 34% LVPWd 1.0 (0.6-1.2) Ao Diam 2.8 (2.0-3.7) 2 DIMENSIONAL ASSESSMENT: RIGHT ATRIUM: NORMAL LEFT ATRIUM: NORMAL RIGHT VENTRICLE: NORMAL LEFT VENTRICLE: NORMAL TRICUSPID VALVE: MILD TRICUSPID REGURGITATION MITRAL VALVE: MILD MITRAL REGURGITATION PULMONIC VALVE: NORMAL AORTIC VALVE: MILD AORTIC INSUFFICIENCY PERICARDIAL EFFUSION: NONE AORTIC ROOT: NORMAL LEFT VENTRICULAR WALL MOTION: NORMAL DOPPLER/COLOR FLOW: SEE BELOW COMMENTS: 1. NORMAL LEFT VENTRICULAR EJECTION FRACTION 60-65% WITH NORMAL WALL MOTION 2. GRADE I DIASTOLIC DYSFUNCTION 3. MILD MITRAL REGURGITATION, TRICUSPID REGURGITATION, AORTIC INSUFFICIENCY TECHNOLOGIST: EDMAR COON
[2023-10-31] MEDS: ATORVASTATIN 40 MG TAB PO SCH (20:50)
--- NOTE | 2023-10-31 20:58 | P.PN ---
Date of Service: 10/31/23 Vital Signs Temp Pulse Resp BP Pulse Ox 98.2 F 63 16 171/79 H 98 10/31/23 16:00 10/31/23 16:00 10/31/23 16:00 10/31/23 16:00 10/31/23 16:00 Medications Amlodipine Besylate (Amlodipine 10 Mg Tab) 10 mg PO DAILY [facility] Last Admin: 10/31/23 12:12 Dose: 10 mg Aspirin (Aspirin Ec 81 Mg Tab) 81 mg PO DAILY [facility] Last Admin: 10/31/23 12:15 Dose: 81 mg Atenolol (Atenolol 50 Mg Tab) 100 mg PO [id number] [facility] Last Admin: 10/31/23 05:27 Dose: 100 mg Atorvastatin Calcium (Atorvastatin 40 Mg Tab) 40 mg PO BEDTIME [facility] Last Admin: 10/30/23 20:25 Dose: 40 mg Clopidogrel Bisulfate (Clopidogrel 75 Mg Tablet) 75 mg PO DAILY [facility] Last Admin: 10/31/23 12:15 Dose: 75 mg Folic Acid (Folic Acid 1 Mg Tablet) 1 mg PO DAILY [facility] Last Admin: 10/31/23 12:16 Dose: 1 mg Heparin Sodium (Porcine) (Heparin 5000 Unit/Ml 1 Ml Vial) 5,000 unit SQ Q12HR [facility] Last Admin: 10/31/23 12:16 Dose: 5,000 unit Hydralazine HCl (Hydralazine Hcl 25 Mg Tablet) 50 mg PO BID [facility] Last Admin: 10/31/23 12:15 Dose: 50 mg Hydralazine HCl (Hydralazine Hcl 20 Mg/Ml Vial) 10 mg IV Q6HP PRN PRN Reason: SBP >180 MMHG Insulin Glargine (Insulin Glargine 100 Unit/Ml) 15 unit SQ DAILY [facility] Last Admin: 10/31/23 09:00 Dose: Not Given Insulin Human Regular (Insulin Regular (Human) 100 Unit/Ml) 0 unit SQ [facility]; Protocol Last Admin: 10/31/23 17:02 Dose: 5 unit Ondansetron HCl (Ondansetron 4 Mg/2 Ml Vial) 4 mg IV Q6HP PRN PRN Reason: NAUSEA / VOMITING Ramipril (Ramipril 2.5 Mg Cap) 2.5 mg PO BEDTIME [facility] Assessment/ Plan: Nephrology Feeling better No dyspnea No chest pain No acute events overnight Vitals, medications, blood work and imaging reviewed in the chart General: In no apparent distress, Oriented x3, Cooperative HEENT: Atraumatic Neck: Supple Respiratory: Clear to auscultation bilaterally Cardiovascular: No edema, Regular rate/rhythm Gastrointestinal: Soft and benign, Non-distended Musculoskeletal: No clubbing, No contractures Integumentary: No rashes, No cyanosis Neurological: Normal speech Laboratory Data (last 24 hrs) 10/29/23 10/29/23 10/29/23 05:52 05:52 05:52 WBC 6.30 Hgb 12.1 L Hct 35.3 L Plt Count 351 PT 9.9 INR 0.90 APTT 35.7 Sodium 133 L Potassium 3.6 BUN 37 H Creatinine 2.00 H Glucose 357 H Magnesium 2.0 Total Bilirubin 0.2 AST 11 L ALT 15 L Alkaline Phosphatase 64 Imagings Data: EXAM DESCRIPTION: RAD - Chest Single View - 10/29/2023 6:32 am CLINICAL HISTORY: cva Chest pain. COMPARISON: No comparisons FINDINGS: Portable technique limits examination quality. The lungs are grossly clear. The heart is normal in size. No displaced fractures. IMPRESSION: No acute intrathoracic process suspected. darrenrice EXAM DESCRIPTION: US - Renal Ultrasound-Complete - 10/29/2023 1:21 pm CLINICAL HISTORY: andrea Flank pain COMPARISON: No comparisons FINDINGS: Both kidneys are normal in size, shape and echotexture. The right kidney measures 10.3 x 6.5 x 6.4 cm. No hydronephrosis, focal mass or perinephric fluid. The left kidney measures 10.6 x 5.5 x 4.8 cm. No hydronephrosis, focal mass or perinephric fluid. The urinary bladder is incompletely distended without gross abnormality seen. IMPRESSION: Unremarkable renal sonogram. darrenrice LEFT VENTRICULAR WALL MOTION: NORMAL DOPPLER/COLOR FLOW: SEE BELOW COMMENTS: 1. NORMAL LEFT VENTRICULAR EJECTION FRACTION 60-65% WITH NORMAL WALL MOTION 2. GRADE I DIASTOLIC DYSFUNCTION 3. MILD MITRAL REGURGITATION, TRICUSPID REGURGITATION, AORTIC INSUFFICIENCY Conclusions/Impression: Stage I ANDREA CKD III with Proteinuria -No NSAIDs; caution with IVC -DC IVF -Renal US reviewed Hyponatremia, resolved -Maintain nutrition HTN with CKD/ CHF -Continue Atenolol -Continue Hydralazine -Continue Amlodipine -Start Ramipril qhs; titrate as needed Diastolic CHF, chronic -Low sodium diet DM II with CKD -RISS Hypoalbuminemia -Consider protein supplementation Anemia in chronic illness -Monitor H&H Hospitalist note reviewed Case reviewed with hospitalist team
[2023-11-01 02:59] LABS: Absolute Lymphocytes (CBC) 1.7 K/uL (0.7-4.9); Hematocrit 36.3 % (39.6-49.0); Lymphocytes % 15.4 % (15.3-44.8); MCV 85.4 fL (80-100); MPV 8.1 fL (7.6-11.3); Platelets 334 thou/uL (152-406); RBC Red Blood Cell Count 4.25 M/uL (4.33-5.43)
[2023-11-01 03:25] LABS: Potassium 3.8 mEq/L (3.5-5.1); Uric Acid 4.7 mg/dL (3.5-7.2)
[2023-11-01] MEDS: atenoloL 50 MG TAB PO SCH (05:48)
[2023-11-01 07:00] LABS: Hepatitis B Surface Ab - Quant 4.96 mIU/mL (<8.0); Hepatitis B surface AG Interp. Nonreactive (Nonreactive); Hepatitis C Virus Ab Nonreactive (Nonreactive)
[2023-11-01] MEDS: AMLODIPINE 10 MG TAB PO SCH (09:13)
[2023-11-01] MEDS: CLOPIDOGREL 75 MG TABLET PO SCH (09:13)
[2023-11-01] MEDS: HYDRALAZINE HCL 25 MG TABLET PO SCH (09:13)
[2023-11-01] MEDS: HEPARIN 5000 UNIT/ML 1 ML VIAL SQ SCH (09:13)
[2023-11-01] MEDS: ASPIRIN EC 81 MG TAB PO SCH (09:13)
[2023-11-01] MEDS: FOLIC ACID 1 MG TABLET PO SCH (09:13)
[2023-11-01] MEDS: INSULIN REGULAR (HUMAN) 100 UNIT/ML SQ SCH (09:14)
[2023-11-01] MEDS: INSULIN GLARGINE 100 UNIT/ML SQ SCH (09:14)
[2023-11-01 12:27] VITALS: BP 135/63; TEMP 98.7
--- NOTE | 2023-11-01 15:31 | P.DS ---
Admission Date: 10/29/23 Discharge Date: 11/01/23 Disposition: ROUTINE DISCHARGE Discharge Condition: GOOD Reason for Admission: Dizziness Brief History of Present Illness: Diagnosis Left-sided facial droop, dysarthria, ataxia secondary to 8 mm acute CVA right medial midbrain NSTEMI Hypertension ANDREA/CKD Diabetes most type [id number] with hyperglycemia Hyperlipidemia HPI 10/29/23 58-year-old male with history of hypertension, hyperlipidemia, agm-nuptmpi-[id number] diabetes, iron deficiency anemia and likely some degree of CKD presented to the emergency department chief complaint of left-sided facial droop, unsteady gait, dysarthria. He reports that he took a shower around midnight and after the shower was having dizziness, trouble walking and subsequently went to sleep. When he woke up in the morning his symptoms had worsened, for that reason his family brought him to the emergency department. He was underwent for TNK and his symptoms seem to be improving. He was evaluated in the emergency department CT of his head without contrast was negative for acute findings, CT angiogram of the head and neck showed no large vessel occlusions or other stenotic findings. Labs were significant for a creatinine of 2.0, glucose 357 initial high sensitive troponin 432.5. No labs available for comparison of creatinine although family does mention that his primary care doctor had discussed some degree of elevated kidney function in the past. ED provider wishes to admit for further evaluation management of suspected TIA, ANDREA, NSTEMI Hospital Course: Jonathan Pimentel is a pleasant 58 year old male with a past medical history significant for hypertension, hyperlipidemia, sxr-tsgaqpg-otllqogcc diabetes, iron deficiency anemia and likely some degree of CKD who was admitted to the [facility] on 10/29/23 for TIA, ANDREA, NSTEMI. Jonathan Pimentel presented to the ED with symptoms of left-sided facial droop, unsteady gait, and dysarthria. CT of his head without contrast was negative for acute findings, CT angiogram of the head and neck showed no large vessel occlusions or other stenotic findings. He was started on aspirin, statin, Plavix, and folic acid with neurology and PT consulted. He developed diplopia- primarily effecting far sight which resolved 10/31 but with upper visual newton are diminished bilaterally. Nonhemorrhagic 8 mm acute CVA right medial midbrain was reported on the MRI 10/31/23. Cardiology consulted due to elevated troponin levels. Per Dr. Ellsworth's consult note he believes this is due to the recent s troke. He recommends outpatient stress test once recovered from the stroke. Echocardiogram reports "1. NORMAL LEFT VENTRICULAR EJECTION FRACTION 60-65% WITH NORMAL WALL MOTION 2. GRADE I DIASTOLIC DYSFUNCTION, 3. MILD MITRAL REGURGITATION, TRICUSPID REGURGITATION, AORTIC INSUFFICIENCY, with EF of 63%. He experienced hypertensive disorder and was started on Norvasc, atenolol, and hydralazine for better control. He will need to follow-up with his PCP for continued titration of antihypertensives. He is awake, ambulating independently, tolerating p.o. diet, hemodynamically stable, and ready for discharge. On 11/01/23, Jonathan was seen on morning rounds and deemed medically stable for discharge. Jonathan was discharged with instructions to schedule follow-up appointments with Dr. Ellsworth, Dr. Celeste, and PCP. Jonathan was provided prescriptions for Ramipril, hydralazine, folic acid, metformin, Lipitor, Norvasc, Plavix, aspirin, and atenolol with instructions to monitor his blood pressure three times daily. The patient and family members were given the opportunity to ask questions and reported no further questions. Furthermore, all questions were answered to the best of my ability. A copy of this discharge summary will be sent to the above providers to facilitate continuity of care. Today, I personally spent 55 minutes with Jonathan, of which greater than 50% of the time was spent in patient education, counseling, and coordination of care as described above. Physical exam GEN: Alert, oriented, NAD HEENT: Normal conjunctiva, sclera anicteric CV: Regular rate and rhythm, S1 and S2 present, no edema Pulm: Nonlabored respirations on room air, symetrical chest wall movement ABD: Soft, nontender, nondistended MSK: No joint tenderness Integumentary: No rashes Neuro: Normal speech, normal affect, upper visual newton diminished bilaterally, diplopia present primarily farsighted, mildly abn left heel to alicia Vital Signs/Physical Exam: Temp Pulse Resp BP Pulse Ox 98.7 F 65 16 135/63 96 11/01/23 12:00 11/01/23 12:00 11/01/23 12:00 11/01/23 12:00 11/01/23 12:00 Laboratory Data at Discharge: WBC 11.00 thou/uL (4.3-10.9) H 11/01/23 02:15 Hgb 12.3 g/dL (13.6-17.9) L D 11/01/23 02:15 Hct 36.3 % (39.6-49.0) L 11/01/23 02:15 Plt Count 334 thou/uL (152-406) 11/01/23 02:15 PT 9.9 SECONDS (9.5-12.5) 10/29/23 05:52 INR 0.90 10/29/23 05:52 APTT 35.7 SECONDS (24.3-36.9) 10/29/23 05:52 Sodium 141 mEq/L (136-145) 11/01/23 02:15 Potassium 3.8 mEq/L (3.5-5.1) 11/01/23 02:15 BUN 29 mg/dL (7-18) H 11/01/23 02:15 Creatinine 1.72 mg/dL (0.70-1.30) H 11/01/23 02:15 Glucose 107 mg/dL (74-106) H 11/01/23 02:15 Uric Acid 4.7 mg/dL (3.5-7.2) 11/01/23 02:15 Phosphorus 3.4 mg/dL (2.5-4.9) 10/29/23 12:43 Magnesium 2.0 mg/dL (1.6-2.4) 11/01/23 02:15 Total Bilirubin 0.2 mg/dL (0.2-1.0) 10/29/23 05:52 AST 11 U/L (15-37) L 10/29/23 05:52 ALT 15 U/L (16-61) L 10/29/23 05:52 Alkaline Phosphatase 64 U/L (45-117) 10/29/23 05:52 Triglycerides 174 mg/dL (<150) H 10/30/23 03:04 Cholesterol 343 mg/dL (<200) H 10/30/23 03:04 HDL Cholesterol 53 mg/dL (40-60) 10/30/23 03:04 Cholesterol/HDL Ratio 6.47 10/30/23 03:04 Home Medications: Amlodipine [Norvasc*] 10 mg PO DAILY 30 Days #30 tab 11/01/23 Atorvastatin Calcium [Lipitor] 40 mg PO BEDTIME 30 Days #30 tab 11/01/23 Clopidogrel Bisulfate [Plavix*] 75 mg PO DAILY 30 Days #30 tab 11/01/23 Folic Acid 1 mg PO DAILY 30 Days #30 tab 11/01/23 Hydralazine [Apresoline*] 50 mg PO BID 30 Days #30 tab 11/01/23 Metformin ER [Glucophage ER*] 500 mg PO DAILY 30 Days #30 tab.sa 11/01/23 atenoloL [Tenormin*] 100 mg PO [id number] 30 Days #30 tab 11/01/23 ramipriL [Altace*] 2.5 mg PO BEDTIME 30 Days #30 cap 11/01/23 New Medications: ramipriL [Altace*] 2.5 mg PO BEDTIME 30 Days #30 cap Hydralazine [Apresoline*] 50 mg PO BID 30 Days #30 tab Folic Acid 1 mg PO DAILY 30 Days #30 tab Metformin ER [Glucophage ER*] 500 mg PO DAILY 30 Days #30 tab.sa Atorvastatin Calcium [Lipitor] 40 mg PO BEDTIME 30 Days #30 tab Amlodipine [Norvasc*] 10 mg PO DAILY 30 Days #30 tab Clopidogrel Bisulfate [Plavix*] 75 mg PO DAILY 30 Days #30 tab atenoloL [Tenormin*] 100 mg PO [id number] 30 Days #30 tab Physician Discharge Instructions: 1. Please call and schedule a follow-up appointment with your PCP in 3-5 days - Please follow-up with your PCP for medication refills/adjustments - starting new medications that will need to be managed by your PCP 2. Please call and schedule a follow-up appointment with Dr. Celeste in 3-5 days for Stroke management 3. Continue with diabetic and heart healthy diet 4. Caution when ambulating 5. Return to the ED if symptoms return 6. Follow-up with Dr. Ellsworth for outpatient stress test New medication Folic acid 1 mg daily Metformin 500 mg daily Atenolol 100 mg daily hydralazine 50 mg twice daily Norvasc 10 mg daily Plavix 75 mg daily Lipitor 40 mg at bedtime Ramipril 2.5 mg at bedtime Diet: ADA Activity: Fall precautions Followup: Jose Celeste MD [ASSOCIATE-ACTIVE - CAN ADMIT] - 2-3 Days Rafael Diallo MD [Primary Care Provider] - 2-3 Days Time spent managing pt's care (in minutes): 55
--- NOTE | 2023-11-01 19:19 | P.PN ---
Date of Service: 11/01/23 Vital Signs Temp Pulse Resp BP Pulse Ox 98.7 F 65 16 135/63 96 11/01/23 12:00 11/01/23 12:00 11/01/23 12:00 11/01/23 12:00 11/01/23 12:00 Assessment/ Plan: Nephrology Feeling better No dyspnea No chest pain No acute events overnight Vitals, medications, blood work and imaging reviewed in the chart General: In no apparent distress, Oriented x3, Cooperative HEENT: Atraumatic Neck: Supple Respiratory: Clear to auscultation bilaterally Cardiovascular: No edema, Regular rate/rhythm Gastrointestinal: Soft and benign, Non-distended Musculoskeletal: No clubbing, No contractures Integumentary: No rashes, No cyanosis Neurological: Normal speech Laboratory Data (last 24 hrs) 10/29/23 10/29/23 10/29/23 05:52 05:52 05:52 WBC 6.30 Hgb 12.1 L Hct 35.3 L Plt Count 351 PT 9.9 INR 0.90 APTT 35.7 Sodium 133 L Potassium 3.6 BUN 37 H Creatinine 2.00 H Glucose 357 H Magnesium 2.0 Total Bilirubin 0.2 AST 11 L ALT 15 L Alkaline Phosphatase 64 Imagings Data: EXAM DESCRIPTION: RAD - Chest Single View - 10/29/2023 6:32 am CLINICAL HISTORY: cva Chest pain. COMPARISON: No comparisons FINDINGS: Portable technique limits examination quality. The lungs are grossly clear. The heart is normal in size. No displaced fractures. IMPRESSION: No acute intrathoracic process suspected. darrenrice EXAM DESCRIPTION: US - Renal Ultrasound-Complete - 10/29/2023 1:21 pm CLINICAL HISTORY: andrea Flank pain COMPARISON: No comparisons FINDINGS: Both kidneys are normal in size, shape and echotexture. The right kidney measures 10.3 x 6.5 x 6.4 cm. No hydronephrosis, focal mass or perinephric fluid. The left kidney measures 10.6 x 5.5 x 4.8 cm. No hydronephrosis, focal mass or p erinephric fluid. The urinary bladder is incompletely distended without gross abnormality seen. IMPRESSION: Unremarkable renal sonogram. darrenrice LEFT VENTRICULAR WALL MOTION: NORMAL DOPPLER/COLOR FLOW: SEE BELOW COMMENTS: 1. NORMAL LEFT VENTRICULAR EJECTION FRACTION 60-65% WITH NORMAL WALL MOTION 2. GRADE I DIASTOLIC DYSFUNCTION 3. MILD MITRAL REGURGITATION, TRICUSPID REGURGITATION, AORTIC INSUFFICIENCY Conclusions/Impression: Stage I ANDREA CKD III with Proteinuria -No NSAIDs; caution with IVC -Renal US reviewed Hyponatremia, resolved -Maintain nutrition HTN with CKD/ CHF -Continue Atenolol -Continue Hydralazine -Continue Amlodipine -Continue Ramipril qhs; titrate as needed Diastolic CHF, chronic -Low sodium diet DM II with CKD -RISS Hypoalbuminemia -Consider protein supplementation Anemia in chronic illness -Monitor H&H Hospitalist note reviewed Case reviewed with hospitalist team
[2023-11-03 16:08] LABS: Albumin, (SPE) 3.2 g/dL (3.8-4.8); Alpha-1-Globulins 0.2 g/dL (0.2-0.3); Alpha-2-Globulins 0.7 g/dL (0.5-0.9); Gamma Globulins 0.8 g/dL (0.8-1.7); INTERPRETATION REPORT
== END 2023-11-01 12:38 | disposition home or self-care (01) | DRG 61 ==
LOC: ER 05:38 → ERHOLD 07:38 → 2ND 08:48
PROVIDERS: ADMIT Hospitalist; ATTEND Internal Medicine
DX: I63.9 Cerebral infarction, unspecified (principal); I21.4 Non-ST elevation (NSTEMI) myocardial infarction; N17.9 Acute kidney failure, unspecified; E87.1 Hypo-osmolality and hyponatremia; I50.32 Chronic diastolic (congestive) heart failure; I13.0 Hypertensive heart and chronic kidney disease with heart failure and stage 1 through stage 4 chronic kidney disease, or unspecified chronic kidney disease; N18.30 Chronic kidney disease, stage 3 unspecified; E11.22 Type 2 diabetes mellitus with diabetic chronic kidney disease; E11.65 Type 2 diabetes mellitus with hyperglycemia; D63.1 Anemia in chronic kidney disease; E88.09 Other disorders of plasma-protein metabolism, not elsewhere classified; E78.5 Hyperlipidemia, unspecified; R29.810 Facial weakness; R47.81 Slurred speech; R20.0 Anesthesia of skin; R29.702 NIHSS score 2; Z79.02 Long term (current) use of antithrombotics/antiplatelets; Z79.84 Long term (current) use of oral hypoglycemic drugs; Z79.899 Other long term (current) drug therapy; Z91.148 Patient's other noncompliance with medication regimen for other reason
CPT/HCPCS: 36415; 70450; 70496; 70498; 70551; 71045; 76770; 80048; 80061; 80076; 81001; 82043; 82570; 82947; 83036; 83735; 84100; 84156; 84165; 84439; 84443; 84484; 84550; 85025; 85610; 85730; 86038; 86160; 86335; 86706; 86803; 87340; 93005; 93306; 97110; 97112; 97116; 97163; 99285; J1644; J1815; J2785; J7030; Q9967

== ENCOUNTER 2024-02-03 02:06 | Inpatient (IN) | payer SELFPAY ==
[2024-02-03] MEDS ORDERED: ASPIRIN 81 MG CHEWABLE TABLET ONE (02:31)
[2024-02-03] MEDS ORDERED: FUROSEMIDE 40 MG/4 ML VIAL ONE ×2 (02:31→06:05)
[2024-02-03] MEDS ORDERED: NITROGLYCERIN 1 GM PKT TD ONE (02:38)
[2024-02-03 02:39] LABS: Absolute Eosinophils 0.1 K/uL (0-0.5); Absolute Lymphocytes (CBC) 0.9 K/uL (0.7-4.9); Absolute Monocytes 0.8 K/uL (0.1-1.3); Absolute Neutrophil 5.5 K/uL (1.8-8.0); Basophils % 0.7 % (0-1.3); Eosinophils % 1.2 % (0-4.4); Hematocrit 27.9 % (39.6-49.0); Hemoglobin 9.4 g/dL (13.6-17.9); Lymphocytes % 12.6 % (15.3-44.8); MCH 29.6 pg (27.0-35.0); MCHC 33.5 g/dL (32.0-36.0); MCV 88.3 fL (80-100); MPV 6.9 fL (7.6-11.3); Monocytes % 10.5 % (3.3-12.3); Nucleated Red Blood Cells % 0.1 % (0-0); Platelets 328 thou/uL (152-406); RBC Red Blood Cell Count 3.16 M/uL (4.33-5.43); Red Cell Distribution Width 16.1 % (12.1-15.2)
[2024-02-03 02:45] LABS: PT Prothrombin Time 11.1 SECONDS (9.5-12.5); Protime INR 1.01
[2024-02-03 02:59] LABS: Albumin 3.1 g/dL (3.4-5.0); Albumin/Globulin Ratio 0.8 (1.1-1.8); Bilirubin Direct 0.2 mg/dL (0-0.2); Bilirubin Indirect, Calculated 0.1 mg/dL (0.2-0.8); Bilirubin Total 0.3 mg/dL (0.2-1.0); Globulin 3.9 g/dL (2.3-3.5); Magnesium 1.9 mg/dL (1.6-2.4)
[2024-02-03 03:23] LABS: Troponin High Sensitivity 246.7 pg/mL (<58.9)
--- NOTE | 2024-02-03 04:30 | EDPHYS ---
Physician Documentation [facility] Name: Jonathan Pimentel Age: 58 yrs Sex: Male : 1965 Arrival Date: 02/03/2024 Time: 02:06 Bed 17 Private MD: ED Physician Yousif Henriquez HPI: 02/02 02:15 This 58 yrs old Male presents to ER via Unassigned with complaints of Shortness sp4 Of Breath. 04:22 58-year-old male with history of hypertension, hyperlipidemia, [id number] sp4 diabetes, iron deficiency, chronic kidney disease, NSTEMI, prior CVA, presents with orthopnea and dyspnea on exertion and feeling unwell. Patient states he was getting short of breath for the past few days.. Last echocardiogram was done on 10/30/2023 revealed normal left ventricular ejection fraction of 60 to 65%.. 04:22 Patient's medications include ramipril, hydralazine, folic acid, metformin, sp4 atorvastatin, amlodipine, clopidogrel, atenolol 100 mg p.o. daily. Also Lipitor 40 mg daily, ramipril 2.5 mg at bedtime.. On presentation patient is dyspneic and hypoxemic.. Historical: - Allergies: 02:29 No Known Allergies; jb4 - PMHx: 02:29 HTN; DM; CVA; jb4 - PSHx: 02:29 None; jb4 - Immunization history:: Adult Immunizations up to date. - Infectious Disease History:: Denies. - Social history:: Smoking status: Patient denies any tobacco usage or history of. - Family history:: not pertinent. ROS: 04:22 Constitutional: Negative for fever, chills, and weight loss, positive dyspnea on sp4 exertion, positive orthopnea, positive shortness of breath 04:22 All other systems are negative, Exam: 04:22 Constitutional: This is a well developed, well nourished patient who is awake, alert, sp4 moderate distress secondary to dyspnea, tachypnea, hypoxemic on arrival Head/Face: Normocephalic, atraumatic. Eyes: Pupils equal round and reactive to light, extra-ocular motions intact. Lids and lashes normal. Conjunctiva and sclera are not injected. Cornea within normal limits. Periorbital areas with no swelling, redness, or edema. ENT: Nares patent. No nasal discharge, no septal abnormalities noted. Tympanic membranes are normal and external auditory canals are clear. Oropharynx with no redness, swelling, or masses, exudates, or evidence of obstruction, uvula midline. Mucous membranes moist. Neck: Trachea midline, no thyromegaly or masses palpated, and no cervical lymphadenopathy. Supple, full range of motion without nuchal rigidity, or vertebral point tenderness. Chest/axilla: Normal chest wall appearance and motion. Nontender with no deformity. No lesions are appreciated. Cardiovascular: Regular rate and rhythm with a normal S1 and S2. No gallops, murmurs, or rubs. Normal PMI, positive jugular venous distention, no pulse deficits. Respiratory: Lungs have equal breath sounds bilaterally, positive bilateral crackles and wheezes in all expiratory [place] Abdomen/GI: Soft, with normal bowel sounds. No distension or tympany. No guarding or rebound. No evidence of tenderness throughout. Back: No spinal tenderness. No costovertebral tenderness. Skin: Warm, dry with normal turgor. Normal color with no rashes, no lesions, and no evidence of cellulitis. MS/ Extremity: Pulses equal, no cyanosis. Neurovascular intact. Full, normal range of motion. Neuro: Awake and alert, GCS 15, oriented to person, place, time, and situation. Cranial nerves II-XII grossly intact. Motor strength 5/5 in all extremities. Sensory grossly intact. Psych: Awake, alert, with orientation to person, place and time. Behavior, mood, and affect are within normal limits 04:22 ECG was reviewed by the Attending Physician. EKG at 0 224 reveals normal sinus rhythm, normal EKG at a rate of 80. No ST elevation or depression Vital Signs: 02:26 BP 167 / 64; Pulse 81; Resp 26; Temp 97.6(TE); Pulse Ox 71% on R/A; Weight 64.41 kg jb4 (M); Height 5 ft. 2 in. ; 03:00 BP 164 / 61; Pulse 73; Resp 22; Pulse Ox 95% on 4 lpm NC; rv 05:25 BP 156 / 69; Pulse 65; Resp 27; Temp 98; Pulse Ox 95% on 6 lpm NC; rv 02:26 Body Mass Index 25.97 (64.41 kg, 157.48 cm) jb4 02:26 Provider at the bedside, placed on 4L NC. jb4 [place] Coma Score: 04:22 Eye Response: spontaneous(4). Motor Response: obeys commands(6). Verbal Response: sp4 oriented(5). Total: 15. MDM: 02:16 Patient medically screened. sp4 04:22 Differential diagnosis: asthma, Bronchitis CHF exacerbation, Chronic Obstructive sp4 Pulmonary Disease Myocardial Infarction. Data reviewed: vital signs, nurses notes, old medical records, lab test result(s), EKG, radiologic studies, plain films. Scoring Tools HEART Score: History: Highly Suspicious (2) ECG: Normal (0) Age: > 45 and < 65 years (1) Risk Factors: > or = 3 Risks factors for Atherosclerotic disease (2) Troponin: > or = 3 x Normal limit (2) Total Score = 7. ED course: Patient warrants admission for further management. Signs of CHF with elevated troponin, pulmonary edema. Hypoxemia after medications in ER . . 02/02 02:15 Order name: Basic Metabolic Panel; Complete Time: 04:14 sp4 02/02 02:15 Order name: CBC with Diff; Complete Time: 04:14 sp4 02/02 02:15 Order name: LFT's; Complete Time: 04:14 sp4 02/02 02:15 Order name: Magnesium; Complete Time: 04:14 sp4 02/02 02:15 Order name: NT PRO-BNP; Complete Time: 04:14 sp4 02/02 02:15 Order name: PT-INR; Complete Time: 04:14 sp4 02/02 02:15 Order name: Troponin HS; Complete Time: 04:14 sp4 02/02 02:30 Order name: ABG; Complete Time: 07:11 sp4 02/02 05:34 Order name: Thyroid Stimulating Hormone EDMS 02/02 05:34 Order name: CBC with Automated Diff EDMS 02/02 05:34 Order name: CBC with Automated Diff EDMS 02/02 05:34 Order name: Comprehensive Metabolic Panel EDMS 02/02 05:34 Order name: Comprehensive Metabolic Panel EDMS 02/02 05:34 Order name: Lipid Profile EDMS 02/02 05:34 Order name: Lipid Profile EDMS 02/02 05:34 Order name: Magnesium EDMS 02/02 05:34 Order name: Magnesium EDMS 02/02 05:34 Order name: Magnesium EDMS 02/02 05:34 Order name: Magnesium EDMS 02/02 05:34 Order name: Troponin High Sensitivity EDMS 02/02 05:34 Order name: Troponin High Sensitivity EDMS 02/02 05:34 Order name: Troponin High Sensitivity EDMS 02/02 05:34 Order name: Troponin High Sensitivity EDMS 02/02 08:17 Order name: Glucose, Ancillary Testing EDMT 02/02 10:45 Order name: Procalcitonin EDMT 02/02 12:10 Order name: Glucose, Ancillary Testing EDMS 02/02 02:15 Order name: XRAY Chest (1 view) sp4 02/02 09:02 Order name: CT EDMT 02/02 02:15 Order name: EKG; Complete Time: 02:16 sp4 02/02 05:34 Order name: CONS Physician Consult EDMT 02/02 05:34 Order name: CONS Physician Consult EDMT 02/02 02:15 Order name: Cardiac monitoring; Complete Time: 02:35 sp4 02/02 02:15 Order name: EKG - Nurse/Tech; Complete Time: 02:35 sp4 02/02 02:15 Order name: IV Saline Lock; Complete Time: 02:35 sp4 02/02 02:15 Order name: Labs collected and sent; Complete Time: 02:35 sp4 02/02 02:15 Order name: O2 Per Protocol; Complete Time: 02:35 sp4 02/02 02:15 Order name: O2 Sat Monitoring; Complete Time: 02:35 sp4 EC:22 Rate is 80 beats/min. Rhythm is regular, Normal Sinus Rhythm. QRS [place] is Normal. [place] sp4 interval is normal. QRS interval is normal. QT interval is normal. No Q waves. T waves are Normal. No ST changes noted. Clinical impression: Normal ECG. Interpreted by me. Reviewed by me. Administered Medications: 02:34 Drug: Aspirin PO Chewable Tablet 324 mg PO once; 81 mg tablets x 4 Route: PO; rv 04:46 Follow up: Response: No adverse reaction rv 02:35 Drug: Furosemide IVP 40 mg IVP once; give over 2 minutes Route: IVP; Site: right rv forearm; 04:46 Follow up: Response: No adverse reaction; Marked relief of symptoms rv 02:42 Drug: Nitroglycerin Transdermal Ointment 2 % 1 inches Transdermal once Route: rv Transdermal; Site: anterior chest wall; 04:46 Drug: Enoxaparin Sub-Q 60 mg Sub-Q once Route: Sub-Q; Site: abdomen; rv 05:26 Follow up: Response: No adverse reaction rv Disposition Summary: 02/03/24 04:30 Hospitalization Ordered Notes: Hospitalization Status: Inpatient Admission sp4 Provider: Quirino Arevalo sp4 Condition: Stable sp4 Problem: new sp4 Symptoms: have improved sp4 Bed/Room Type: Standard sp4 Location: Telemetry/MedSurg (Inpatient)(02/03/24 11:27) eb Room Assignment: 405(02/03/24 11:27) eb Diagnosis - Acute diastolic (congestive) heart failure sp4 - Acute pulmonary edema sp4 - Elevated Troponin sp4 Forms: - Medication Reconciliation Form sp4 - SBAR form sp4 - Leadership Thank You Letter sp4 Signatures: Dispatcher [employer] Jessi Fisher, RN Renzo Aguilar RN RN jb4 Jackie Urbina Ronaldo RN RN rv Yousif Henriquez MD MD sp4 Corrections: (The following items were deleted from the chart) 02:16 02:16 BASIC METABOLIC PANEL+C.LAB.BRZ ordered. EDMS EDMS 02:16 02:16 CBC+H.LAB.BRZ ordered. EDMS EDMS 02:16 02:16 HEPATIC FUNCTION+C.LAB.BRZ ordered. EDMS EDMS 02:16 02:16 MAGNESIUM+C.LAB.BRZ ordered. EDMS EDMS 02:16 02:16 PROBNP+C.LAB.BRZ ordered. EDMS EDMS 02:16 02:16 PROTIME (+INR)+COAG.LAB.BRZ ordered. EDMS EDMS 02:16 02:16 Troponin High Sensitivity+C.LAB.BRZ ordered. EDMS EDMS 05:24 04:30 Telemetry/MedSurg (Inpatient) sp4 cg 05:24 04:30 sp4 cg 11:27 05:24 [facility] ER HOLD cg eb 11: 05:24 ERHOLD- cg eb
--- NOTE | 2024-02-03 04:30 | ER ---
Nurse's Notes [facility] Name: Jonathan Pimentel Age: 58 yrs Sex: Male : 1965 Arrival Date: 02/03/2024 Time: 02:06 Bed 17 Private MD: Diagnosis: Acute diastolic (congestive) heart failure;Acute pulmonary edema;Elevated Troponin Presentation: 02/02 02:26 Chief complaint: Spouse and/or significant other states: He was on the boat for the jb4 past couple of days and said he started having trouble breathing when laying down. He says he feels fine when sitting up or walking but he cannot lay down. Tonight was worse. Coronavirus screen: At this time, the client does not indicate any symptoms associated with coronavirus-19. Ebola Screen: No symptoms or risks identified at this time. Initial Sepsis Screen: Does the patient meet any 2 criteria? RR > 20 per min. Yes Does the patient have a suspected source of infection? No. Patient's initial sepsis screen is negative. Risk Assessment: Do you want to hurt yourself or someone else? Patient reports no desire to harm self or others. Onset of symptoms was February 03, 2024. Transition of care: patient was not received from another setting of care. 02:26 Method Of Arrival: Ambulatory jb4 02:26 Acuity: CELESTE 2 jb4 Triage Assessment: :29 General: Appears distressed, uncomfortable, Behavior is calm, cooperative. Pain: Denies jb4 pain. Neuro: Level of Consciousness is awake, alert, obeys commands, Oriented to person, place, time, situation. Cardiovascular: Patient's skin is warm and dry. Respiratory: Reports shortness of breath at rest Airway is patent Respiratory effort is even, labored, Respiratory pattern is regular, Onset: The symptoms/episode began/occurred yesterday, the patient has moderate shortness of breath. GI: No signs and/or symptoms were reported involving the gastrointestinal system. : No signs and/or symptoms were reported regarding the genitourinary system. Derm: Skin is intact, Skin is pink, warm \T\ dry. Musculoskeletal: Circulation, motion, and sensation intact. Range of motion: intact in all extremities. Historical: - Allergies: : No Known Allergies; jb4 - PMHx: :29 HTN; DM; CVA; jb4 - PSHx: 02:29 None; jb4 - Immunization history:: Adult Immunizations up to date. - Infectious Disease History:: Denies. - Social history:: Smoking status: Patient denies any tobacco usage or history of. - Family history:: not pertinent. Screenin:35 [facility] [place] ED Fall Risk Assessment (Adult) History of falling in the last 3 months, rv including since admission No falls in past 3 months (0 pts) Score/Fall Risk Level 0 - 2 = Low Risk Oriented to surroundings, Maintained a safe environment, Educated pt \T\ family on fall prevention, incl call for assistance when getting out of bed, Assessed \T\ reinforced patient's understanding of fall precautions. Abuse screen: Denies threats or abuse. Denies injuries from another. Nutritional screening: No deficits noted. Tuberculosis screening: No symptoms or risk factors identified. Assessment: 02:35 General: Appears ill, Behavior is calm, cooperative. Pain: Denies pain. Neuro: Level of rv Consciousness is awake, alert, obeys commands, Oriented to person, place, time, situation. Cardiovascular: Capillary refill < 3 seconds Patient's skin is warm and dry. Rhythm is regular. Respiratory: Airway is patent Respiratory effort is labored, Respiratory pattern is tachypnea GI: No signs and/or symptoms were reported involving the gastrointestinal system. : No signs and/or symptoms were reported regarding the genitourinary system. Derm: Skin is intact. Vital Signs: 02:26 BP 167 / 64; Pulse 81; Resp 26; Temp 97.6(TE); Pulse Ox 71% on R/A; Weight 64.41 kg jb4 (M); Height 5 ft. 2 in. ; 03:00 BP 164 / 61; Pulse 73; Resp 22; Pulse Ox 95% on 4 lpm NC; rv 05:25 BP 156 / 69; Pulse 65; Resp 27; Temp 98; Pulse Ox 95% on 6 lpm NC; rv 02:26 Body Mass Index 25.97 (64.41 kg, 157.48 cm) jb4 02:26 Provider at the bedside, placed on 4L NC. jb4 [place] Coma Score: 04:22 Eye Response: spontaneous(4). Motor Response: obeys commands(6). Verbal Response: sp4 oriented(5). Total: 15. ED Course: 02:12 Patient arrived in ED. gm2 02:15 Yousif Henriquez MD is Attending Physician. sp4 02:28 Triage completed. jb4 02:29 Arm band placed on right wrist. jb4 02:35 XRAY Chest (1 view) In Process Unspecified. EDMS 02:35 Patient has correct armband on for positive identification. Client placed on continuous rv cardiac and pulse oximetry monitoring. NIBP monitoring applied. ice cream truck driver on. 02:35 Initial lab(s) drawn, by me, sent to lab. Inserted saline lock: 20 gauge in right rv forearm, using aseptic technique. Blood collected. 02:35 No provider procedures requiring assistance completed. rv 03:06 Drew Hoffman, ALE is Primary Nurse. rv 04:29 Quirino Arevalo MD is Hospitalizing Provider. sp4 05:25 Patient admitted, IV remains in place. rv 07:07 Provided Education on: ADMISSION. db Administered Medications: 02:34 Drug: Aspirin PO Chewable Tablet 324 mg PO once; 81 mg tablets x 4 Route: PO; rv 04:46 Follow up: Response: No adverse reaction rv 02:35 Drug: Furosemide IVP 40 mg IVP once; give over 2 minutes Route: IVP; Site: right rv forearm; 04:46 Follow up: Response: No adverse reaction; Marked relief of symptoms rv 02:42 Drug: Nitroglycerin Transdermal Ointment 2 % 1 inches Transdermal once Route: rv Transdermal; Site: anterior chest wall; 04:46 Drug: Enoxaparin Sub-Q 60 mg Sub-Q once Route: Sub-Q; Site: abdomen; rv 05:26 Follow up: Response: No adverse reaction rv Medication: 02:35 VIS not applicable for this client. rv Output: 03:06 Urine: 350ml (Voided); Total: 350ml. rv 04:36 Urine: 425ml; Total: 775ml. rv Outcome: 04:30 Decision to Hospitalize by Provider. sp4 05:25 Admitted to ER Hold. Please see [facility] for further documentation. rv 05:25 Condition: good 05:25 Instructed on the need for admit, 12:19 Patient left the ED. Signatures: Dispatcher [facility] Kayleen Mccormick RN RN Renzo Porter RN RN jb Drew Hoffman RN RN rv Vandana Silva RN RN db Yousif Henriquez MD MD sp4 Patricia Weiss 2
[2024-02-03] MEDS ORDERED: ENOXAPARIN 60 MG/0.6 ML SQ ONE (04:44)
[2024-02-03] MEDS ORDERED: MORPHINE 2 MG/ML SYR IV PRN (05:27)
[2024-02-03] MEDS ORDERED: ALBUTEROL 2.5 MG/3 ML NEB SOL NEB PRN (05:27)
[2024-02-03] MEDS ORDERED: ONDANSETRON 4 MG/2 ML VIAL IV PRN (05:27)
--- NOTE | 2024-02-03 05:27 | P.HP ---
Certification for Inpatient With expected LOS: >2 Midnights Patient will require the following post-hospital care: None Practitioner: I am a practitioner with admitting privileges, knowledge of patient current condition, hospital course, and medical plan of care. Services: Services provided to patient in accordance with Admission requirements found in Title 42 Section 412.3 of the Code of Federal Regulations Patient History Date of Service: 02/03/24 Reason for admission: Shortness of breath History of Present Illness: 58-year-old male with past medical history of HTN/DM/HLD/recent TIA,/CKD stage IV with creatinine ranging in the 1.7-2.1 range, chronic elevated troponin presented with sudden onset shortness of breath since the last 1 day. Shortness of breath was initially on exertion but progressed to become at rest. Patient admitted to orthopnea with paroxysmal nocturnal dyspnea. He denies any increased body swelling. He admits to cough but not productive of sputum. He denies any cough contact. He denies any fever or chills. He denies any chest pain. Of note he was recently hospitalized for presumed CVA 3 months ago during which she was noted with persistent elevated troponin in the 400s, he was evaluated by cardiology Dr. Padilla, echocardiogram shows mild diastolic dysfunction but EF of 65%. Patient was continued on management with Plavix and PAOLO and did not have any stress test or angiogram scheduled. He states he has been following with Dr. Cali his PCP since then but did not have any cardiology follow-up as outpatient. He stated family history of CAD in a brother. He has never had any cardiac event or NE in the past. On arrival in the ED he was noted with O2 sat of 71% on room air, blood pressure was in the 150s over 70s. He was afebrile, chest x-ray shows acute pulmonary edema. EKG showed normal sinus rhythm with no ST segment changes, troponin of 236. He has been managed for acute diastolic dysfunction. Allergies No Known Allergies Allergy (Unverified 10/29/23 08:16) Home Medications: Amlodipine [Norvasc*] 10 mg PO DAILY 30 Days #30 tab 11/01/23 Atorvastatin Calcium [Lipitor] 40 mg PO BEDTIME 30 Days #30 tab 11/01/23 Clopidogrel Bisulfate [Plavix*] 75 mg PO DAILY 30 Days #30 tab 11/01/23 Folic Acid 1 mg PO DAILY 30 Days #30 tab 11/01/23 Hydralazine [Apresoline*] 50 mg PO BID 30 Days #30 tab 11/01/23 Metformin ER [Glucophage ER*] 500 mg PO DAILY 30 Days #30 tab.sa 11/01/23 atenoloL [Tenormin*] 100 mg PO [id number] 30 Days #30 tab 11/01/23 ramipriL [Altace*] 2.5 mg PO BEDTIME 30 Days #30 cap 11/01/23 - Past Medical/Surgical History Has patient received pneumonia vaccine in the past: No Diabetic: Yes -: HTN -: DM II -: HLD -: CKD (Dr. Patricia/ Dr. 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 Dyspnea Physical Examination - Physical Exam General: Alert, In no apparent distress, Oriented x3, Mild distress HEENT: Atraumatic, Normocephalic, PERRLA Neck: Supple, 2+ carotid pulse no bruit, JVD distended Respiratory: Diminished, Crackles/rales Cardiovascular: No edema, Regular rate/rhythm, Normal S1 S2, No murmurs Gastrointestinal: Normal bowel sounds, Soft and benign, Non-distended, No ascites, No tenderness Musculoskeletal: No clubbing, No swelling, No contractures Integumentary: No erythema, No warmth Neurological: Normal gait, Normal speech, Normal strength at 5/5 x4 extr, Normal tone, Sensation intact - Studies Laboratory Data (last 24 hrs) 02/03/24 02/03/24 02/03/24 02:29 02:29 02:29 WBC 7.30 Hgb 9.4 L Hct 27.9 L Plt Count 328 PT 11.1 INR 1.01 Sodium 137 Potassium 4.0 BUN 38 H Creatinine 2.03 H Glucose 165 H Magnesium 1.9 Total Bilirubin 0.3 AST 30 ALT 45 Alkaline Phosphatase 62 Assessment and Plan - Problems (Diagnosis) (1) Acute diastolic congestive heart failure Current Visit: Yes Status: Acute (2) Hypertension Current Visit: Yes Status: Acute (3) Diabetes mellitus Current Visit: Yes Status: Acute (4) CKD (chronic kidney disease), stage IV Current Visit: Yes Status: Acute (5) Troponin level elevated Current Visit: Yes Status: Acute - Plan Impression Acute respiratory distresswith acute pulmonary edema Acute diastolic CHF exacerbationpresumed Persistent elevated troponin Hypertension Diabetes mellitus CKD stage IIIb/IVat baseline Plan Will admit patient to the inpatient status Managed for the following 1 acute respiratory failurehypoxicdue to acute pulmonary edema IV Lasix 40 every 8 Monitor intake and output Fluid restriction to less than 1.2 L/day Obtain cardiology consult since assess the persistent elevated troponin May need repeat echocardiogram although 1 but 3 months ago but will defer to cardiology Persistent troponin anemiaMay be due to CKD, follow-up with plan for rule out acute coronary syndrome Trend troponin Continue aspirin and Plavix Diabetes mellitus with insulin sliding scale, resume oral medication Hypertensionfollow with increase diuresis, on ramipril, continue for now CKD stage IVat baseline, may need nephrologypreviously evaluated by Harshad DVT prophylaxissubcutaneous Lovenox Advance directivefull code Dispositionpossible hospital stay for more than 48 hours Discharge Plan: Home Plan to discharge in: 48 Hours - Advance Directives Does patient have a Living Will: No Does patient have a Durable POA for Healthcare: No
[2024-02-03] MEDS ORDERED: HYDRALAZINE HCL 20 MG/ML VIAL IV PRN (05:31)
[2024-02-03] MEDS ORDERED: BENZONATATE 100 MG CAP PO PRN (05:31)
[2024-02-03] MEDS ORDERED: GUAIFENESIN/DM 5 ML UCUP PO PRN (05:31)
[2024-02-03 05:51] LABS: Arterial Blood Carboxyhemoglob 1.2 % (0-1.5); Blood Gas Oxyhemoglobin 87.3 % (94-97); Blood Gas THB 9.2 g/dl (12-18); Blood O2 Saturation 90.2 % (92-98.5)
[2024-02-03] MEDS: FUROSEMIDE 40 MG/4 ML VIAL IV SCH (06:00)
--- NOTE | 2024-02-03 07:10 | P.PN ---
Date of Service: 02/03/24 Subjective: no significant change since admission +orthopnea new for him no new/worsening symptoms since admission ROS: 10 point ROS as noted above, otherwise negative Physical Exam: GEN: Alert, oriented, NAD HEENT: Normal conjunctiva, sclera anicteric CV: Regular rate and rhythm, no lower extremity edema Pulm: Non-labored respirations on 6L NC, shallow respirations, diminished at bases bilaterally, +nonproductive cough ABD: Soft, nontender, nondistended Neuro: Normal speech, normal affect vitals reviewed Problem List: Acute hypoxic respiratory failure secondary to suspected pneumonia / acute on chronic diastolic CHF (HFpEF) NSTEMI CKD3-4 Hypertension Hyperlipidemia NIDDM2 hx iron deficiency anemia hx recent CVA (8mm right medial midbrain 11/16) Acute hypoxic respiratory failure secondary to acute on chronic diastolic CHF (HFpEF) NSTEMI Reports sudden onset dyspnea over the last day. Initially only with exertion but progressed to dyspnea even at rest. +nonproductive cough CXR (02/02): diffuse patchy airspace disease, greatest in bilateral upper lung space; favoring pneumonia CT chest (02/02): ordered to further eval opacities Prior echo from 10/29/23 with 63% EF, grade 1 diastolic dysfunction, mild MR/TR/AI symptoms and CXR most consistent with CHF, doubt pneumonia trend troponins, monitor on telemetry BNP 4k continue IV lasix 40 mg q8h PRN nebs pulm consulted CKD3-4 Creatinine 2.03 on IV lasix 40 mg q8h continue to monitor renal function Nephrology consulted Hypertension Hyperlipidemia confirm home meds, restart as appropriate IV hydralazine for now NIDDM2 accu-checks, SSI takes metformin at home a1c was 13.1 in oct 2023 hx iron deficiency anemia takes ferrous sulfate at home hx recent CVA (8mm right medial midbrain 11/16) confirm home meds. continue supportive care VTE: Lovenox Code: DNR Dispo: Home, ~1-2 days
[2024-02-03] MEDS: INSULIN REGULAR (HUMAN) 100 UNIT/ML SQ SCH (07:30)
[2024-02-03] MEDS: INFLUENZA VACCINE (for 6+ mo) 0.5 ML DOSE IMVAC ONE (08:00)
[2024-02-03] MEDS: ASPIRIN EC 81 MG TAB PO SCH (09:00)
[2024-02-03] MEDS: ENOXAPARIN 40 MG/0.4 ML SQ SCH (09:00)
--- NOTE | 2024-02-03 09:01 | RAD REPORT ---
EXAM DESCRIPTION: CT - Thorax Wo Con - 02/03/2024 8:53 am CLINICAL HISTORY: eval b/l opacities, ?acute/new CHF COMPARISON: Chest Single View dated 02/03/2024; Neck Angio dated 10/29/2023; Renal Ultrasound-Complete dated 10/29/2023 FINDINGS: Chest Wall: 2.7 cm right thyroid nodule. Lungs: Bilateral perihilar nodular ground-glass opacities. Pleura: Small moderate bilateral pleural effusions. Mediastinum/charlie: No pathologic lymphadenopathy. Pulmonary arteries/Aorta: Limited evaluation without contrast. No aortic aneurysm. Heart: Small pericardial effusion. Normal heart size. Coronary artery calcifications. Upper abdomen: No acute abnormality. Bones: No acute abnormality. All CT scans are performed using dose optimization technique as appropriate and may include automated exposure control or mA/KV adjustment according to patient size. IMPRESSION: 1. Perihilar nodular ground-glass opacities and small to moderate bilateral pleural effu sions probably representing acute cardiogenic pulmonary edema. 2. Right thyroid nodule measuring 2.7 cm for which nonemergent thyroid ultrasound is recommended furt her evaluation. .
[2024-02-03 10:00] LABS: Thyroid Stimulating Hormone 2.59 uIU/mL (0.358-3.740)
[2024-02-03 10:01] LABS: Troponin High Sensitivity 225.7 pg/mL (<58.9)
[2024-02-03] MEDS ORDERED: ENOXAPARIN 40 MG/0.4 ML SQ ONE (11:48)
--- NOTE | 2024-02-03 13:16 | P.CNS ---
Date of Consult: 02/03/24 Reason for Consult: Shortness of breath Chief Complaint: Shortness of breath History of Present Illness: Patient is 58 years of age does not speak Mongolian history obtained from his as apparently has been complaining of paroxysmal nocturnal dyspnea for the past week some orthopnea history of cardiac problems send COVID in October from which he recovered patient is a shrimp are with bilateral pulmonary infiltrates bilateral pleural effusions has any fever or chills Allergies No Known Allergies Allergy (Unverified 10/29/23 08:16) Home Medications: Amlodipine [Norvasc*] 10 mg PO DAILY 30 Days #30 tab 11/01/23 Atorvastatin Calcium [Lipitor] 40 mg PO BEDTIME 30 Days #30 tab 11/01/23 Clopidogrel Bisulfate [Plavix*] 75 mg PO DAILY 30 Days #30 tab 11/01/23 Folic Acid 1 mg PO DAILY 30 Days #30 tab 11/01/23 Hydralazine [Apresoline*] 50 mg PO BID 30 Days #30 tab 11/01/23 Metformin ER [Glucophage ER*] 500 mg PO DAILY 30 Days #30 tab.sa 11/01/23 ramipriL [Altace*] 2.5 mg PO BEDTIME 30 Days #30 cap 11/01/23 Aspirin [Aspirin EC 81 MG] 81 mg PO DAILY 02/03/24 Cinnamon Bark [Cinnamon] 500 mg PO 02/03/24 Ferrous Sulfate 325 mg PO BID 02/03/24 Pioglitazone HCl 45 mg PO DAILY 02/03/24 atenoloL [Tenormin*] 50 mg PO [id number] 02/03/24 glipiZIDE [Glipizide] 10 mg PO BID 02/03/24 - Past Medical/Surgical History Diabetic: Yes -: HTN -: DM II -: HLD -: CKD (Dr. Patricia/ Dr. 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 - Family History Brother Medical History: Hypertension, Diabetes, Stroke - Social History Smoking Status: Never smoker Alcohol use: Yes CD- Drugs: No Caffeine use: Yes Place of Residence: Home Review of Systems 10-point ROS is otherwise unremarkable Physical Examination Temp Pulse Resp BP Pulse Ox 98 F 57 18 163/71 H 99 02/03/24 12:00 02/03/24 12:00 02/03/24 12:00 02/03/24 12:00 02/03/24 12:00 General: Alert, Oriented x3 Respiratory: Crackles/rales Cardiovascular: No edema, Regular rate/rhythm, Normal S1 S2 Gastrointestinal: Normal bowel sounds, Soft and benign Laboratory Data (last 24 hrs) 02/03/24 02/03/24 02/03/24 02:29 02:29 02:29 WBC 7.30 Hgb 9.4 L Hct 27.9 L Plt Count 328 PT 11.1 INR 1.01 Sodium 137 Potassium 4.0 BUN 38 H Creatinine 2.03 H Glucose 165 H Magnesium 1.9 Total Bilirubin 0.3 AST 30 ALT 45 Alkaline Phosphatase 62 - Problems (1) Congestive heart failure Current Visit: Yes Status: Acute Plan: Suspect the patient has congestive heart failure doubt pneumonia and PE is over 3000 has bilateral pleural effusions chronic renal failure patient has a normal white count agree with Lasix x-ray echocardiogram reviewed he has bilateral infiltrates echocardiogram pending in addition patient has diabetes hypertension Qualifiers: Heart failure type: unspecified
--- NOTE | 2024-02-03 13:36 | EKG ---
Test Date: 2024-02-03 Test Time: 02:24:17 [employer]: LAYLA MEASUREMENT RESULTS: Intervals: Rate: 80 DE: 140 QRSD: 94 QT: 368 QTc: 424 [place]: P: 54 DE: 140 QRS: 31 T: 55 INTERPRETIVE STATEMENTS: Normal sinus rhythm Normal ECG Compared to ECG 10/29/2023 05:44:04 First degree AV block no longer present T-wave abnormality no longer present Possible ischemia no longer present Electronically Signed On 02-03-24 13:36:02 CDT by Tra Ellsworth
--- NOTE | 2024-02-03 14:36 | ECHO ---
HEIGHT: 5 ft 2 in WEIGHT: 142 lb 0 oz DATE OF STUDY: 02/03/[address]: Taras Kohler MD 2-DIMENSIONAL: YES M.MODE: YES DOPPLER: YES COLOR FLOW: YES TDS: NO PORTABLE: YES DEFINITY: NO BUBBLE STUDY: NO DIAGNOSIS: WORSENING CONGESTIVE FAILURE, HYPOXIA CARDIAC HISTORY: CATHERIZATION: NO SURGERY: NO PROSTHETIC VALVE: NO PACEMAKER: NO MEASUREMENTS (cm) DIASTOLIC (NORMALS) SYSTOLIC (NORMALS) IVSd 1.2 (0.6-1.2) LA Diam 3.2 (1.9-4.0) LVEF 55-60% LVIDd 4.4 (3.5-5.7) LVIDs 3.4 (2.0-3.5) %FS 22% LVPWd 1.2 (0.6-1.2) Ao Diam 2.7 (2.0-3.7) 2 DIMENSIONAL ASSESSMENT: RIGHT ATRIUM: NORMAL LEFT ATRIUM: NORMAL RIGHT VENTRICLE: NORMAL LEFT VENTRICLE: NORMAL TRICUSPID VALVE: MILD TRICUSPID REGURGITATION MITRAL VALVE: MILD MITRAL REGURGITATION PULMONIC VALVE: NORMAL AORTIC VALVE: NORMAL PERICARDIAL EFFUSION: NONE AORTIC ROOT: NORMAL LEFT VENTRICULAR WALL MOTION: NORMAL. DOPPLER/COLOR FLOW: SEE BELOW. COMMENTS: 1. NORMAL LEFT VENTRICULAR EJECTION FRACTION 55-60% WITH NORMAL WALL MOTION. 2. MODERATE DIASTOLIC DYSFUNCTION. 3. MILD TRICUSPID REGURGITATION. 4. MILD MITRAL REGURGITATION. 5. RIGHT VENTRICULAR SYSTOLIC PRESSURE WITH 40-45mmHg (MILDLY ELEVATED) TECHNOLOGIST: EDMAR COON
--- NOTE | 2024-02-03 19:53 | CON ---
Date of Consultation: 02/03/2024 Reason For Consultation: CHF, shortness of breath. History Of Present Illness: This is a 58-year-old male with past medical history of hypertension, dy slipidemia, recent stroke, and diabetes, presented with chronic kidney failure. Creatinine is betwee n 1.7 and 2. Presented with shortness of breath for one day, nonexertional, and lower extremity rehan a. No orthopnea. He was admitted a few months ago for CVA and had a normal ejection fraction, now a lso had an echo that was normal. His troponin is borderline elevated. The patient denies having any chest pain. Past Medical History: As outlined above in HPI. Medications: Refer reconciliation sheet for detailed list. Allergies: NO KNOWN DRUG ALLERGIES. Family History: No premature coronary artery disease or cancer. Social History: Does not smoke or drink. Does not use any drugs. Review of Systems: All systems reviewed are negative except mentioned in HPI. Physical Examination: Vital Signs: Reviewed. Head and Neck: Pupils are equal, reactive to light. Intact eye movements. No JVD. No cervical lym phadenopathy. Neck is supple. Thyroid is not enlarged. Lungs: Clear to auscultation bilaterally. No rhonchi, wheezing, or crackles. No accessory muscle u se. Heart: Regular rate and rhythm. No extra sounds. Abdomen: Soft, nontender. Bowel sounds positive. No organomegaly. No masses or hernia. No rigidi ty or rebound. Extremities: Trace edema bilaterally. No clubbing, cyanosis. Intact pulses. Skin: No rash or nodule. Neurologic: Alert, awake, oriented x3. No acute focal deficits appreciated. Investigations: BUN 38, creatinine 2.0. Elevated troponins 246 and then 210. Hemoglobin 9.4. Assessment/recommendation: 1.Acute on chronic diastolic heart failure exacerbation. Agree with Lasix. Monitor BUN, creatinine , electrolytes as he has chronic kidney failure. Low salt diet and daily body weight. 2.Elevated troponin. This could be acute coronary syndrome, but he does not have any chest pain. I recommend to obtain an exercise nuclear stress test and further evaluate accordingly. Of note, his ejection fraction on echo is normal with no wall motion abnormalities. I will monitor the patient wi th you. SR/MODL Voice ID: [id number] Report ID: [id number]
[2024-02-03] MEDS: ATORVASTATIN 40 MG TAB PO SCH (20:36)
[2024-02-03] MEDS: HYDRALAZINE HCL 25 MG TABLET PO SCH (20:37)
--- NOTE | 2024-02-03 22:55 | P.CNS ---
Date of Consult: 02/03/24 Reason for Consult: ANDREA/ CKD Requesting Physician: Taras Kohler Chief Complaint: Shortness of breath History of Present Illness: 58-year-old male with past medical history of HTN/DM/HLD/recent TIA,/CKD stage IV with creatinine ranging in the 1.7-2.1 range, chronic elevated troponin presented with sudden onset shortness of breath since the last 1 day. Shortness of breath was initially on exertion but progressed to become at rest. Patient admitted to orthopnea with paroxysmal nocturnal dyspnea. He denies any increased body swelling. He admits to cough but not productive of sputum. He denies any cough contact. He denies any fever or chills. He denies any chest pain. Of note he was recently hospitalized for presumed CVA 3 months ago during which she was noted with persistent elevated troponin in the 400s, he was evaluated by cardiology Dr. Blackwell, echocardiogram shows mild diastolic dysfunction but EF of 65%. Patient was continued on management with Plavix and PAOLO and did not have any stress test or angiogram scheduled. He states he has been following with Dr. Cali his PCP since then but did not have any cardiology follow-up as outpatient. He stated family history of CAD in a brother. He has never had any cardiac event or NC in the past. On arrival in the ED he was noted with O2 sat of 71% on room air, blood pressure was in the 150s over 70s. He was afebrile, chest x-ray shows acute pulmonary edema. EKG showed normal sinus rhythm with no ST segment changes, troponin of 236. He has been managed for acute diastolic dysfunction. [id number] 02:15 This 58 yrs old Male presents to ER via Unassigned with complaints of Shortness sp4 Of Breath. 04:22 58-year-old male with history of hypertension, hyperlipidemia, [id number] sp4 diabetes, iron deficiency, chronic kidney disease, NSTEMI, prior CVA, presents with orthopnea and dyspnea on exertion and feeling unwell. Patient states he was getting short of breath for the past few days.. Last echocardiogram was done on 10/30/2023 revealed normal left ventricular ejection fraction of 60 to 65%.. 04:22 Patient's medications include ramipril, hydralazine, folic acid, metformin, sp4 atorvastatin, amlodipine, clopidogrel, atenolol 100 mg p.o. daily. Also Lipitor 40 mg daily, ramipril 2.5 mg at bedtime.. On presentation patient is dyspneic and hypoxemic.. Allergies No Known Allergies Allergy (Unverified 10/29/23 08:16) Home medications list reviewed: Yes Home Medications: Amlodipine [Norvasc*] 10 mg PO DAILY 30 Days #30 tab 11/01/23 Atorvastatin Calcium [Lipitor] 40 mg PO BEDTIME 30 Days #30 tab 11/01/23 Clopidogrel Bisulfate [Plavix*] 75 mg PO DAILY 30 Days #30 tab 11/01/23 Folic Acid 1 mg PO DAILY 30 Days #30 tab 11/01/23 Hydralazine [Apresoline*] 50 mg PO BID 30 Days #30 tab 11/01/23 Metformin ER [Glucophage ER*] 500 mg PO DAILY 30 Days #30 tab.sa 11/01/23 ramipriL [Altace*] 2.5 mg PO BEDTIME 30 Days #30 cap 11/01/23 Aspirin [Aspirin EC 81 MG] 81 mg PO DAILY 02/03/24 Cinnamon Bark [Cinnamon] 500 mg PO 02/03/24 Ferrous Sulfate 325 mg PO BID 02/03/24 Pioglitazone HCl 45 mg PO DAILY 02/03/24 atenoloL [Tenormin*] 50 mg PO [id number] 02/03/24 glipiZIDE [Glipizide] 10 mg PO BID 02/03/24 - Past Medical/Surgical History Diabetic: Yes -: HTN -: DM II -: HLD -: CKD III (Dr. Patricia/ Dr. 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 - Family History Brother Medical History: Hypertension, Diabetes, Stroke - Social History Smoking Status: Never smoker Alcohol use: Yes CD- Drugs: No Caffeine use: Yes Place of Residence: Home Review of Systems 10-point ROS is otherwise unremarkable Respiratory: SOB with Excertion Physical Examination Temp Pulse Resp BP Pulse Ox 97.8 F 62 16 118/60 98 02/03/24 20:00 02/03/24 20:00 02/03/24 20:00 02/03/24 20:00 02/03/24 20:00 General: Oriented x3, Cooperative HEENT: Atraumatic Neck: Supple Respiratory: Diminished Cardiovascular: Edema Gastrointestinal: Soft and benign, Non-distended Musculoskeletal: No clubbing, No contractures Integumentary: No rashes, No cyanosis Neurological: Normal speech Laboratory Data (last 24 hrs) 02/03/24 02/03/24 02/03/24 02:29 02:29 02:29 WBC 7.30 Hgb 9.4 L Hct 27.9 L Plt Count 328 PT 11.1 INR 1.01 Sodium 137 Potassium 4.0 BUN 38 H Creatinine 2.03 H Glucose 165 H Magnesium 1.9 Total Bilirubin 0.3 AST 30 ALT 45 Alkaline Phosphatase 62 Imagings Data: [id number] EXAM DESCRIPTION: CT - Thorax Wo Con - 02/03/2024 8:53 am CLINICAL HISTORY: eval b/l opacities, ?acute/new CHF COMPARISON: Chest Single View dated 02/03/2024; Neck Angio dated 10/29/2023; Renal Ultrasound-Complete dated 10/29/2023 FINDINGS: Chest Wall: 2.7 cm right thyroid nodule. Lungs: Bilateral perihilar nodular ground-glass opacities. Pleura: Small moderate bilateral pleural effusions. Mediastinum/charlie: No pathologic lymphadenopathy. Pulmonary arteries/Aorta: Limited evaluation without contrast. No aortic aneurysm. Heart: Small pericardial effusion. Normal heart size. Coronary artery calcifications. Upper abdomen: No acute abnormality. Bones: No acute abnormality. All CT scans are performed using dose optimization technique as appropriate and may include automated exposure control or mA/KV adjustment according to patient size. IMPRESSION: 1. Perihilar nodular ground-glass opacities and small to moderate bilateral pleural effusions probably representing acute cardiogenic pulmonary edema. 2. Right thyroid nodule measuring 2.7 cm for which nonemergent thyroid ultrasound is recommended further evaluation. darrenrice EXAM DESCRIPTION: US - Renal Ultrasound-Complete - 10/29/2023 1:21 pm CLINICAL HISTORY: andrea Flank pain COMPARISON: No comparisons FINDINGS: Both kidneys are normal in size, shape and echotexture. The right kidney measures 10.3 x 6.5 x 6.4 cm. No hydronephrosis, focal mass or perinephric fluid. The left kidney measures 10.6 x 5.5 x 4.8 cm. No hydronephrosis, focal mass or perinephric fluid. The urinary bladder is incompletely distended without gross abnormality seen. IMPRESSION: Unremarkable renal sonogram. [id number] LEFT VENTRICULAR WALL MOTION: NORMAL. DOPPLER/COLOR FLOW: SEE BELOW. COMMENTS: 1. NORMAL LEFT VENTRICULAR EJECTION FRACTION 55-60% WITH NORMAL WALL MOTION. 2. MODERATE DIASTOLIC DYSFUNCTION. 3. MILD TRICUSPID REGURGITATION. 4. MILD MITRAL REGURGITATION. 5. RIGHT VENTRICULAR SYSTOLIC PRESSURE WITH 40-45mmHg (MILDLY ELEVATED) Conclusions/Impression: Stage I ANDREA may be due to diuresis CKD IIIb with Proteinuria -No NSAIDs HTN with CKD/ CHF -Continue Hydralazine Diastolic CHF, A/C -Continue furosemide DM II with CKD -RISS Hypoalbuminemia -Protein supplementation prn Anemia in chronic illness -Monitor H&H Case reviewed with the hospitalist Thank you kindly for the consultation
[2024-02-04 05:25] LABS: Absolute Basophils 0.1 K/uL (0-0.5); Absolute Eosinophils 0.2 K/uL (0-0.5); Absolute Lymphocytes (CBC) 0.9 K/uL (0.7-4.9); Absolute Monocytes 0.7 K/uL (0.1-1.3); Absolute Neutrophil 3.4 K/uL (1.8-8.0); Eosinophils % 3.8 % (0-4.4); Hematocrit 25.2 % (39.6-49.0); Hemoglobin 8.6 g/dL (13.6-17.9); Lymphocytes % 17.7 % (15.3-44.8); MCH 30.1 pg (27.0-35.0); MCHC 34.3 g/dL (32.0-36.0); MCV 87.8 fL (80-100); MPV 7.4 fL (7.6-11.3); Monocytes % 13.2 % (3.3-12.3); Neutrophils % 64.3 % (41.7-73.7); Platelets 336 thou/uL (152-406); RBC Red Blood Cell Count 2.87 M/uL (4.33-5.43); Red Cell Distribution Width 15.5 % (12.1-15.2)
[2024-02-04 05:42] LABS: Albumin 2.7 g/dL (3.4-5.0); Albumin/Globulin Ratio 0.7 (1.1-1.8); Anion Gap 11.8 mEq/L (5.0-15.0); Bilirubin Total 0.3 mg/dL (0.2-1.0); Globulin 3.7 g/dL (2.3-3.5); Magnesium 1.8 mg/dL (1.6-2.4); Potassium 3.8 mEq/L (3.5-5.1); Protein, Total 6.4 g/dL (6.4-8.2)
--- NOTE | 2024-02-04 06:57 | P.PN ---
Date of Service: 02/04/24 Subjective: Feeling better today Breathing more comfortably at rest. Able to take a deeper breath reports dark brown-black stool since CVA in October no GERD symptoms afebrile ROS: 10 point ROS as noted above, otherwise negative Physical Exam: GEN: Alert, oriented, NAD HEENT: Normal conjunctiva, sclera anicteric CV: Regular rate and rhythm, no lower extremity edema Pulm: Non-labored respirations on 4L NC, shallow respirations, diminished at bases bilaterally, +nonproductive cough ABD: Soft, nontender, nondistended Neuro: Normal speech, normal affect vitals reviewed Problem List: Acute hypoxic respiratory failure secondary to acute on chronic diastolic CHF (HFpEF) NSTEMI small-mod bilateral pleural effusions Iron deficiency anemia, with subacute blood loss anemia suspect GI bleed 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 Initially only with exertion but progressed to dyspnea even at rest. +nonproductive cough CT chest (02/02): Perihilar nodular ground-glass opacities and small-mod b/l pleural effusions. Right thyroid nodule measuring 2.7 cm for which nonemergent thyroid ultrasound is recommended further evaluation. repeat CXR (02/03) with minimal improvement in bilateral opacities; likely pulm edema Prior echo from 10/29/23 with 63% EF, grade 1 diastolic dysfunction, mild MR/TR/AI echo (02/03/24): 55-60% EF, moderate diastolic dysfunction, mild TR/MR, mildly elevated RVsP (40-45mmHg) troponins mildly elevated but trended flat. continue to monitor on telemetry IV lasix decreased to 40 mg BID from TID PRN nebs pulm consulted aldactone 25 mg daily added per pulm (02/03) Cardiology consulted recommends stress test unable to be done here as inpatient for next ~3 weeks d/t staffing. 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 hgb was noted to be in 11-12s prior to starting aspirin/plavix. never had colonoscopy / EGD. Denies heartburn/reflux. Non-tender. iron studies consistent with iron deficiency anemia (iron 29, tsat% 10.4%) Reports taking ferrous sulfate at home dc plavix, does not need DAPT at this point. was not on aspirin prior to CVA monitor hgb start IV iron if hgb stable, given how slow anemia occurred over 3 months, suspect will be stable for EGD/c-scope as outpatient Start IV protonix BID dc lovenox dvt prophylaxis Incidental findings - Right thyroid nodule (2.7cm) incidentally seen on CT chest. Advised to follow up with PCP and to consider thyroid ultrasound as outpatient in near future to further evaluate TSH normal CKD3-4 Creatinine 2.03 -> 2.37 (02/03) decrease IV lasix to 40 mg BID from TID continue to monitor renal function Nephrology consulted Hypertension Hyperlipidemia resume statin, PO apresoline IV hydralazine PRN NIDDM2 accu-checks, SSI takes metformin at home a1c was 13.1 in oct 2023 VTE: dc lovenox 02/03 given suspicion for GI bleed Code: DNR Dispo: Home, ~2 days Pending further diuresis , renal function, hgb
[2024-02-04] MEDS: ASPIRIN EC 81 MG TAB PO SCH (07:41)
[2024-02-04] MEDS: FOLIC ACID 1 MG TABLET PO SCH (07:42)
[2024-02-04] MEDS: CLOPIDOGREL 75 MG TABLET PO SCH (07:42)
--- NOTE | 2024-02-04 08:22 | RAD REPORT ---
EXAM DESCRIPTION: Saúl Single View02/04/2024 6:44 am CLINICAL HISTORY: Shortness breath COMPARISON: February 03 2024 FINDINGS: Minimal improvement in diffuse bilateral pulmonary opacities Small pleural effusions Heart is normal size IMPRESSION: Minimal improvement in diffuse bilateral pulmonary opacities which may represent pulmona ry edema
[2024-02-04] MEDS ORDERED: SODIUM CHLORIDE 0.9% 10ML INJ IV PRN (09:25)
[2024-02-04] MEDS: PANTOPRAZOLE 40 MG INJ IVP SCH (09:41)
--- NOTE | 2024-02-04 10:47 | P.PN ---
Subjective Date of Service: 02/04/24 Chief Complaint: Diastolic heart failure Subjective: Improving (Patient is improving doing better no longer has orthopnea at the bedside) Review of Systems Unremarkable Physical Examination - Vital Signs Temperature: 98.6 F Blood Pressure: 153/72 Pulse: 66 Respirations: 15 Pulse Ox (%): 98 - Physical Exam General: Alert, Oriented x3 Respiratory: Clear to auscultation bilaterally Cardiovascular: No edema, Regular rate/rhythm, Normal S1 S2 Assessment And Plan - Current Problems (Diagnosis) (1) Acute diastolic congestive heart failure Current Visit: Yes Status: Acute Plan: Patient is 58 years of age admitted with acute diastolic heart failure secondary pulmonary hypertension doing much better orthopnea and PND have resolved labs reviewed creatinine is a little worse troponins are elevated I suspect is from the heart failure and low-dose spironolactone continue with Lasix chest x-ray shows significant improvement
[2024-02-04] MEDS: SPIRONOLACTONE 25 MG TABLET PO SCH (11:20)
[2024-02-04] MEDS: SOD FERRIC GLUC COMPLX/SUCROSE 250 MG in NA CHLORIDE 0.9% 250 ML IV ONE (13:19)
[2024-02-04] MEDS: FUROSEMIDE 40 MG/4 ML VIAL IV SCH (17:30)
--- NOTE | 2024-02-04 22:06 | P.PN ---
Date of Service: 02/04/24 Vital Signs Temp Pulse Resp BP Pulse Ox 99.3 F 75 16 118/57 L 95 02/04/24 20:00 02/04/24 20:00 02/04/24 20:00 02/04/24 20:00 02/04/24 20:00 Medications Albuterol Sulfate (Albuterol 2.5 Mg/3 Ml Neb Norma) 2.5 mg NEB Q6HP PRN PRN Reason: SHORTNESS OF BREATH Aspirin (Aspirin Ec 81 Mg Tab) 81 mg PO DAILY [facility] Last Admin: 02/04/24 07:41 Dose: 81 mg Atorvastatin Calcium (Atorvastatin 40 Mg Tab) 40 mg PO BEDTIME [facility] Last Admin: 02/04/24 20:39 Dose: 40 mg Benzonatate (Benzonatate 100 Mg Cap) 200 mg PO TID PRN PRN Reason: COUGH Folic Acid (Folic Acid 1 Mg Tablet) 1 mg PO DAILY [facility] Last Admin: 02/04/24 07:42 Dose: 1 mg Furosemide (Furosemide 40 Mg/4 Ml Vial) 40 mg IV BIDL [facility] Last Admin: 02/04/24 17:30 Dose: 40 mg Guaifenesin/Dextromethorphan (Guaifenesin/Dm 5 Ml Ucup) 10 ml PO Q6H PRN PRN Reason: COUGH Hydralazine HCl (Hydralazine Hcl 20 Mg/Ml Vial) 10 mg IV Q6HP PRN PRN Reason: Titrate to SBP (MUST DEFINE) Hydralazine HCl (Hydralazine Hcl 25 Mg Tablet) 50 mg PO BID [facility] Last Admin: 02/04/24 20:39 Dose: 50 mg Ferric Sodium Gluconate Complex 250 mg/ Sodium Chloride 270 mls @ 135 mls/hr IV Q24H [facility] Stop: 02/07/24 13:59 Insulin Human Regular (Insulin Regular (Human) 100 Unit/Ml) 0 unit SQ ACHS [facility]; Protocol Last Admin: 02/04/24 20:40 Dose: 5 unit Morphine Sulfate (Morphine 2 Mg/Ml Syr) 2 mg IV Q4H PRN PRN Reason: Pain scale 8-10 (Severe) Ondansetron HCl (Ondansetron 4 Mg/2 Ml Vial) 4 mg IV Q8H PRN PRN Reason: NAUSEA / VOMITING Pantoprazole Sodium (Pantoprazole 40 Mg Inj) 40 mg IVP Q12HR [facility]; Protocol Last Admin: 02/04/24 20:39 Dose: 40 mg Sodium Chloride (Sodium Chloride 0.9% 10ml Inj) 10 ml IV UD PRN PRN Reason: Diluant Spironolactone (Spironolactone 25 Mg Tablet) 25 mg PO DAILY [facility] Last Admin: 02/04/24 11:20 Dose: 25 mg Assessment/ Plan: Nephrology No dyspnea No chest pain No acute events overnight Vitals, medications, blood work and imaging reviewed in the chart General: Oriented x3, Cooperative HEENT: Atraumatic Neck: Supple Respiratory: Normal resp effort Cardiovascular: Edema Gastrointestinal: Soft and benign, Non-distended Musculoskeletal: No clubbing, No contractures Integumentary: No rashes, No cyanosis Neurological: Normal speech Laboratory Data (last 24 hrs) 02/03/24 02/03/24 02/03/24 02:29 02:29 02:29 WBC 7.30 Hgb 9.4 L Hct 27.9 L Plt Count 328 PT 11.1 INR 1.01 Sodium 137 Potassium 4.0 BUN 38 H Creatinine 2.03 H Glucose 165 H Magnesium 1.9 Total Bilirubin 0.3 AST 30 ALT 45 Alkaline Phosphatase 62 Imagings Data: [id number] EXAM DESCRIPTION: CT - Thorax Wo Con - 02/03/2024 8:53 am CLINICAL HISTORY: eval b/l opacities, ?acute/new CHF COMPARISON: Chest Single View dated 02/03/2024; Neck Angio dated 10/29/2023; Renal Ultrasound-Complete dated 10/29/2023 FINDINGS: Chest Wall: 2.7 cm right thyroid nodule. Lungs: Bilateral perihilar nodular ground-glass opacities. Pleura: Small moderate bilateral pleural effusions. Mediastinum/charlie: No pathologic lymphadenopathy. Pulmonary arteries/Aorta: Limited evaluation without contrast. No aortic aneur ysm. Heart: Small pericardial effusion. Normal heart size. Coronary artery calcifications. Upper abdomen: No acute abnormality. Bones: No acute abnormality. All CT scans are performed using dose optimization technique as appropriate and may include automated exposure control or mA/KV adjustment according to patient size. IMPRESSION: 1. Perihilar nodular ground-glass opacities and small to moderate bilateral pleural effusions probably representing acute cardiogenic pulmonary edema. 2. Right thyroid nodule measuring 2.7 cm for which nonemergent thyroid ultrasound is recommended further evaluation. darrenrice EXAM DESCRIPTION: US - Renal Ultrasound-Complete - 10/29/2023 1:21 pm CLINICAL HISTORY: andrea Flank pain COMPARISON: No comparisons FINDINGS: Both kidneys are normal in size, shape and echotexture. The right kidney measures 10.3 x 6.5 x 6.4 cm. No hydronephrosis, focal mass or perinephric fluid. The left kidney measures 10.6 x 5.5 x 4.8 cm. No hydronephrosis, focal mass or perinephric fluid. The urinary bladder is incompletely distended without gross abnormality seen. IMPRESSION: Unremarkable renal sonogram. [id number] LEFT VENTRICULAR WALL MOTION: NORMAL. DOPPLER/COLOR FLOW: SEE BELOW. COMMENTS: 1. NORMAL LEFT VENTRICULAR EJECTION FRACTION 55-60% WITH NORMAL WALL MOTION. 2. MODERATE DIASTOLIC DYSFUNCTION. 3. MILD TRICUSPID REGURGITATION. 4. MILD MITRAL REGURGITATION. 5. RIGHT VENTRICULAR SYSTOLIC PRESSURE WITH 40-45mmHg (MILDLY ELEVATED) Conclusions/Impression: Stage I ANDREA may be due to diuresis CKD IIIb with Proteinuria -No NSAIDs HTN with CKD/ CHF -Continue Hydralazine Diastolic CHF, A/C -Continue furosemide DM II with CKD -RISS Hypoalbuminemia -Protein supplementation prn Anemia in chronic illness Iron Deficiency 10% -Monitor H&H -Start Ferrlecit Case reviewed with the Dr. Kohler
[2024-02-05 03:08] LABS: Hematocrit 25.5 % (39.6-49.0); Hemoglobin 8.6 g/dL (13.6-17.9); MCH 29.9 pg (27.0-35.0); MCHC 33.9 g/dL (32.0-36.0); MPV 7.1 fL (7.6-11.3); Platelets 327 thou/uL (152-406); Red Cell Distribution Width 15.1 % (12.1-15.2)
[2024-02-05 03:18] LABS: Albumin 2.6 g/dL (3.4-5.0); Anion Gap 11.5 mEq/L (5.0-15.0); Magnesium 1.9 mg/dL (1.6-2.4); Phosphorus 4.6 mg/dL (2.5-4.9); Potassium 3.5 mEq/L (3.5-5.1)
[2024-02-05] MEDS ORDERED: ENOXAPARIN 30 MG/0.3 ML SQ SCH (09:00)
--- NOTE | 2024-02-05 09:13 | RAD REPORT ---
[facility] 7:25 am CLINICAL HISTORY: Possible CHF COMPARISON: Chest Single View dated 02/04/2024; Chest Single View dated 02/03/2024; Chest Single View dated 10/29/2023 TECHNIQUE: Portable AP view of the chest. FINDINGS: The lungs are clear. No pneumothorax or effusion. The cardiomediastinal contours are unre markable. IMPRESSION: No acute cardiopulmonary process.
--- NOTE | 2024-02-05 10:14 | P.PN ---
Date of Service: 02/05/24 Subjective: Breathing more comfortably at rest. required O2 overnight, off this morning no new/worsening symptoms ambulating improved no BM overnight afebrile ROS: 10 point ROS as noted above, otherwise negative Physical Exam: GEN: Alert, oriented, NAD HEENT: Normal conjunctiva, sclera anicteric CV: Regular rate and rhythm, no lower extremity edema Pulm: Non-labored respirations on room air, clear bilaterally, diminished bilaterally ABD: Soft, nontender, nondistended Neuro: Normal speech, normal affect vitals reviewed Problem List: Acute hypoxic respiratory failure secondary to acute on chronic diastolic CHF (HFpEF) NSTEMI small-mod bilateral pleural effusions Iron deficiency anemia, with subacute blood loss anemia suspect GI bleed 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 Initially only with exertion but progressed to dyspnea even at rest. +nonproductive cough CT chest (02/02): Perihilar nodular ground-glass opacities and small-mod b/l pleural effusions. Right thyroid nodule measuring 2.7 cm for which nonemergent thyroid ultrasound is recommended further evaluation. repeat CXR (02/03) with minimal improvement in bilateral opacities; likely pulm edema Prior echo from 10/29/23 with 63% EF, grade 1 diastolic dysfunction, mild MR/TR/AI echo (02/03/24): 55-60% EF, moderate diastolic dysfunction, mild TR/MR, mildly elevated RVsP (40-45mmHg) troponins mildly elevated but trended flat IV lasix decreased to 40 mg BID from TID PRN nebs pulm consulted aldactone 25 mg daily added per pulm (02/03) Cardiology consulted recommends stress test unable to be done here as inpatient for next ~3 weeks d/t staffing. 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 hgb was noted to be in 11-12s prior to starting aspirin/plavix. never had colonoscopy / EGD. Denies heartburn/reflux. Non-tender. iron studies consistent with iron deficiency anemia (iron 29, tsat% 10.4%) Reports taking ferrous sulfate at home dc plavix, does not need DAPT at this point. was not on aspirin prior to CVA if hgb stable, given how slow anemia occurred over 3 months, suspect will be stable for EGD/c-scope as outpatient Start IV protonix BID IV iron dc lovenox dvt prophylaxis Incidental findings - Right thyroid nodule (2.7cm) incidentally seen on CT chest. Advised to follow up with PCP and to consider thyroid ultrasound as outpatient in near future to further evaluate TSH normal CKD3-4 Creatinine 2.37 -> 2.11 (02/04) decrease IV lasix to 40 mg BID from TID continue to monitor renal function Nephrology consulted Hypertension Hyperlipidemia resume statin, discussed with neprho stop home hydralazine, increase home ramipril and increase dose switch lasix to torsemide dc spironolactone NIDDM2 accu-checks, SSI takes metformin at home a1c was 13.1 in oct 2023 VTE: dc lovenox 02/03 given suspicion for GI bleed Code: DNR Dispo: Home, ~1 day Pending further diuresis , renal function, hgb
[2024-02-05] MEDS: SOD FERRIC GLUC COMPLX/SUCROSE 250 MG in NA CHLORIDE 0.9% 250 ML IV SCH (11:36)
[2024-02-05] MEDS: TORSEMIDE 20 MG TAB PO SCH (13:59)
--- NOTE | 2024-02-05 18:55 | PN ---
Date of Progress Note: 02/05/2024 Subjective: Seen by bedside. Doing clinically well. Review of Systems: No shortness of breath, chest pain, nausea, vomiting, or diarrhea. No abdominal pain. All other sys tems were reviewed, they were negative. Objective: Vital Signs: Reviewed. Head and Neck: Pupils are equal, reactive to light. Intact eye movements. No JVD. No cervical lym phadenopathy. Neck is supple. Thyroid is not enlarged. Lungs: Clear to auscultation bilaterally. No rhonchi, wheezing, or crackles. No accessory muscle u se. Heart: Regular rate and rhythm. No extra sounds. Abdomen: Soft, nontender. Bowel sounds positive. No organomegaly. No masses or hernia. No rigidi ty or rebound. Extremities: No edema, clubbing, or cyanosis. Intact pulses. Skin: No rash or nodule. Neurologic: Alert, awake, oriented x3. No acute focal deficits appreciated. Lymph Nodes: No cervical or axillary lymphadenopathy. Investigations: Labs were reviewed. Assessment And Recommendations: 1.Acute on chronic diastolic heart failure exacerbation, improved nicely. Continue current manageme nt. 2.Elevated troponin. This is a likely demand ischemia as he has no chest pain. Plan for outpatient stress test. From Cardiology standpoint, patient can be released and follow up next week for stress test. 3.Chronic kidney disease due to uncontrolled hypertension. I explained to his the need to do a close followup with primary care physician and myself on an ou tpatient basis. SR/MODL Voice ID: [id number] Report ID: [id number]
[2024-02-05] MEDS: ramipriL 5 MG CAP PO SCH (21:31)
--- NOTE | 2024-02-05 21:55 | P.PN ---
Date of Service: 02/05/24 Vital Signs Temp Pulse Resp BP Pulse Ox 98.4 F 78 18 148/68 H 96 02/05/24 16:00 02/05/24 21:31 02/05/24 16:00 02/05/24 21:31 02/05/24 16:00 Medications Albuterol Sulfate (Albuterol 2.5 Mg/3 Ml Neb Norma) 2.5 mg NEB Q6HP PRN PRN Reason: SHORTNESS OF BREATH Aspirin (Aspirin Ec 81 Mg Tab) 81 mg PO DAILY [facility] Last Admin: 02/05/24 07:56 Dose: 81 mg Atorvastatin Calcium (Atorvastatin 40 Mg Tab) 40 mg PO BEDTIME [facility] Last Admin: 02/05/24 21:31 Dose: 40 mg Benzonatate (Benzonatate 100 Mg Cap) 200 mg PO TID PRN PRN Reason: COUGH Folic Acid (Folic Acid 1 Mg Tablet) 1 mg PO DAILY [facility] Last Admin: 02/05/24 07:57 Dose: 1 mg Guaifenesin/Dextromethorphan (Guaifenesin/Dm 5 Ml Ucup) 10 ml PO Q6H PRN PRN Reason: COUGH Hydralazine HCl (Hydralazine Hcl 20 Mg/Ml Vial) 10 mg IV Q6HP PRN PRN Reason: Titrate to SBP (MUST DEFINE) Ferric Sodium Gluconate Complex 250 mg/ Sodium Chloride 270 mls @ 135 mls/hr IV Q24H [facility] Stop: 02/07/24 13:59 Last Admin: 02/05/24 11:36 Dose: 270 mls Insulin Human Regular (Insulin Regular (Human) 100 Unit/Ml) 0 unit SQ ACHS [facility]; Protocol Last Admin: 02/05/24 21:31 Dose: 5 unit Morphine Sulfate (Morphine 2 Mg/Ml Syr) 2 mg IV Q4H PRN PRN Reason: Pain scale 8-10 (Severe) Ondansetron HCl (Ondansetron 4 Mg/2 Ml Vial) 4 mg IV Q8H PRN PRN Reason: NAUSEA / VOMITING Pantoprazole Sodium (Pantoprazole 40 Mg Inj) 40 mg IVP Q12HR [facility]; Protocol Last Admin: 02/05/24 21:31 Dose: 40 mg Ramipril (Ramipril 5 Mg Cap) 10 mg PO BEDTIME [facility] Last Admin: 02/05/24 21:31 Dose: 10 mg Sodium Chloride (Sodium Chloride 0.9% 10ml Inj) 10 ml IV UD PRN PRN Reason: Diluant Torsemide (Torsemide 20 Mg Tab) 40 mg PO DAILY [facility] Last Admin: 02/05/24 13:59 Dose: 40 mg Assessment/ Plan: Nephrology No dyspnea No chest pain +Appetite +Cough No acute events overnight Vitals, medications, blood work and imaging reviewed in the chart General: Oriented x3, Cooperative HEENT: Atraumatic Neck: Supple Respiratory: Normal resp effort Cardiovascular: Edema Gastrointestinal: Soft and benign, Non-distended Musculoskeletal: No clubbing, No contractures Integumentary: No rashes, No cyanosis Neurological: Normal speech Laboratory Data (last 24 hrs) 02/03/24 02/03/24 02/03/24 02:29 02:29 02:29 WBC 7.30 Hgb 9.4 L Hct 27.9 L Plt Count 328 PT 11.1 INR 1.01 Sodium 137 Potassium 4.0 BUN 38 H Creatinine 2.03 H Glucose 165 H Magnesium 1.9 Total Bilirubin 0.3 AST 30 ALT 45 Alkaline Phosphatase 62 Imagings Data: [id number] EXAM DESCRIPTION: CT - Thorax Wo Con - 02/03/2024 8:53 am CLINICAL HISTORY: eval b/l opacities, ?acute/new CHF COMPARISON: Chest Single View dated 02/03/2024; Neck Angio dated 10/29/2023; Renal Ultrasound-Complete dated 10/29/2023 FINDINGS: Chest Wall: 2.7 cm right thyroid nodule. Lungs: Bilateral perihilar nodular ground-glass opacities. Pleura: Small moderate bilateral pleural effusions. Mediastinum/charlie: No pathologic lymphadenopathy. Pulmonary arteries/Aorta: Limited evaluation without contrast. No aortic aneurysm. Heart: Small pericardial effusion. Normal heart size. Coronary artery calcifications. Upper abdomen: No acute abnormality. Bones: No acute abnormality. All CT scans are performed using dose optimization technique as appropriate and may include automated exposure control or mA/KV adjustment according to patient size. IMPRESSION: 1. Perihilar nodular ground-glass opacities and small to moderate bilateral pleural effusions probably representing acute cardiogenic pulmonary edema. 2. Right thyroid nodule measuring 2.7 cm for which nonemergent thyroid ultrasound is recommended further evaluation. EXAM DESCRIPTION: US - Renal Ultrasound-Complete - 10/29/2023 1:21 pm CLINICAL HISTORY: andrea Flank pain COMPARISON: No comparisons FINDINGS: Both kidneys are normal in size, shape and echotexture. The right kidney measures 10.3 x 6.5 x 6.4 cm. No hydronephrosis, focal mass or perinephric fluid. The left kidney measures 10.6 x 5.5 x 4.8 cm. No hydronephrosis, focal mass or perinephric fluid. The urinary bladder is incompletely distended without gross abnormality seen. IMPRESSION: Unremarkable renal sonogram. LEFT VENTRICULAR WALL MOTION: NORMAL. DOPPLER/COLOR FLOW: SEE BELOW. COMMENTS: 1. NORMAL LEFT VENTRICULAR EJECTION FRACTION 55-60% WITH NORMAL WALL MOTION. 2. MODERATE DIASTOLIC DYSFUNCTION. 3. MILD TRICUSPID REGURGITATION. 4. MILD MITRAL REGURGITATION. 5. RIGHT VENTRICULAR SYSTOLIC PRESSURE WITH 40-45mmHg (MILDLY ELEVATED) Conclusions/Impression: Stage I ANDREA may be due to diuresis CKD IIIb with Proteinuria -No NSAIDs HTN with CKD/ CHF -Discontinue Hydralazine -Start Ramipril qhs Diastolic CHF, A/C -Discontinue furosemide -Start Torsemide daily DM II with CKD -RISS Hypoalbuminemia -Protein supplementation prn Anemia in chronic illness Iron Deficiency 10% -Monitor H&H -Continue Ferrlecit Case reviewed with the Dr. Kohler
[2024-02-06 03:55] LABS: Hematocrit 26.2 % (39.6-49.0); Hemoglobin 8.7 g/dL (13.6-17.9); MCH 29.2 pg (27.0-35.0); MCHC 33.3 g/dL (32.0-36.0); MCV 87.7 fL (80-100); MPV 7.4 fL (7.6-11.3); Platelets 355 thou/uL (152-406); RBC Red Blood Cell Count 2.98 M/uL (4.33-5.43); Red Cell Distribution Width 15.4 % (12.1-15.2)
[2024-02-06 04:13] LABS: Albumin 2.8 g/dL (3.4-5.0); Anion Gap 8.8 mEq/L (5.0-15.0); Phosphorus 4.4 mg/dL (2.5-4.9); Potassium 3.8 mEq/L (3.5-5.1)
--- NOTE | 2024-02-06 07:42 | P.PN ---
Date of Service: 02/06/24 Subjective: breathing comfortably on room air. lungs sound clear on exam no issues overnight. Denies new / worsening problems doesn't feel anything is getting worse no BM yet afebrile ROS: 10 point ROS as noted above, otherwise negative Physical Exam: GEN: Alert, oriented, NAD HEENT: Normal conjunctiva, sclera anicteric CV: Regular rate and rhythm, no lower extremity edema Pulm: Non-labored respirations on room air, clear bilaterally, diminished bila terally ABD: Soft, nontender, nondistended Neuro: Normal speech, normal affect vitals reviewed Problem List: Acute hypoxic respiratory failure secondary to acute on chronic diastolic CHF (HFpEF) NSTEMI small-mod bilateral pleural effusions Iron deficiency anemia, with subacute blood loss anemia suspect GI bleed hx recent 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 Initially only with exertion but progressed to dyspnea even at rest. +nonproductive cough CT chest (02/02): Perihilar nodular ground-glass opacities and small-mod b/l pleural effusions. Right thyroid nodule measuring 2.7 cm for which nonemergent thyroid ultrasound is recommended further evaluation. Prior echo from 10/29/23 with 63% EF, grade 1 diastolic dysfunction, mild MR/TR/AI echo (02/03/24): 55-60% EF, moderate diastolic dysfunction, mild TR/MR, mildly elevated RVsP (40-45mmHg) troponins mildly elevated but trended flat Lasix switched to torsemide (02/04); hold for now given bump in renal function / low BP for longer t1/2, potentially better adherence vs BID dosing of lasix aldactone dc'd 02/04; switched to ramipril ramipril increased from home 2.5 to 10, dc'd hydralazine and aldactone after discussion with nephro 02/05, ANDREA, with low BP. suspect component of hypotension and possibly intravascular depletion decrease ramipril to 5mg this evening. hold torsemide today PRN nebs pulm consulted Cardiology consulted recommends stress test unable to be done here as inpatient for next ~3 weeks d/t staffing. 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 hgb was noted to be in 11-12s prior to starting aspirin/plavix. never had colonoscopy / EGD. Denies heartburn/reflux. Non-tender. iron studies consistent with iron deficiency anemia (iron 29, tsat% 10.4%) Reports taking ferrous sulfate at home dc plavix, does not need DAPT at this point. was not on aspirin prior to CVA hgb stable last 48 hour. Given how slow anemia occurred over 3 months, suspect will be stable for EGD/c-scope as outpatient continue IV protonix BID continue IV iron. s/p 1 bag dc lovenox dvt prophylaxis Incidental findings - Right thyroid nodule (2.7cm) incidentally seen on CT chest. Advised to follow up with PCP and to consider thy roid ultrasound as outpatient in near future to further evaluate TSH normal ANDREA on CKD3-4 Creatinine 2.11 -> 2.74 (02/05) Lasix switched to torsemide (02/04); hold for now given bump in renal function / low BP aldactone dc'd 02/04 continue to monitor renal function Nephrology consulted Hypertension Hyperlipidemia resume statin discussed with nephro stop home hydralazine 02/04, replaced with increased dose of ramipril diuretics on hold NIDDM2 accu-checks, SSI takes metformin at home a1c was 13.1 in oct 2023 VTE: dc lovenox 02/03 given suspicion for GI bleed Code: DNR Dispo: Home, ~1 day pending stable/improved renal function and BP
[2024-02-06] MEDS: ramipriL 5 MG CAP PO SCH (20:29)
--- NOTE | 2024-02-06 20:49 | RAD REPORT ---
EXAM DESCRIPTION: RAD - Chest Single View - 02/03/2024 2:34 am CLINICAL HISTORY: The patient is 58 years old and is Male; CHEST PAIN Bed Name: 17 TECHNIQUE: Frontal view of the chest. COMPARISON: No relevant prior studies available. FINDINGS: LUNGS: Diffuse bilateral patchy airspace disease, greatest in the bilateral upper lung s pace, favoring pneumonia. PLEURAL SPACE: No appreciable pleural effusion or pneumothorax. MEDIASTINUM: Normal cardiomediastinal contours, allowing for technique and positioning. BONES/JOINTS: No acute osseous abnormality. IMPRESSION: Diffuse bilateral patchy airspace disease, greatest in the bilateral upper lung space, f avoring pneumonia. Electronically signed by: Rob Magana MD 02/03/2024 06:33 AM CDT Due to temporary technical issues with the PACS/Fluency reporting system, reports are being signed by the in house radiologists without review as a courtesy to insure prompt reporting. The interpreting radiologist is fully responsible for the content of the report.
--- NOTE | 2024-02-06 21:45 | P.PN ---
Date of Service: 02/06/24 Vital Signs Temp Pulse Resp BP Pulse Ox 96.8 F 78 16 158/65 H 95 02/06/24 16:00 02/06/24 20:29 02/06/24 16:00 02/06/24 20:29 02/06/24 16:00 Medications Albuterol Sulfate (Albuterol 2.5 Mg/3 Ml Neb Norma) 2.5 mg NEB Q6HP PRN PRN Reason: SHORTNESS OF BREATH Aspirin (Aspirin Ec 81 Mg Tab) 81 mg PO DAILY [facility] Last Admin: 02/06/24 08:44 Dose: 81 mg Atorvastatin Calcium (Atorvastatin 40 Mg Tab) 40 mg PO BEDTIME [facility] Last Admin: 02/06/24 20:29 Dose: 40 mg Benzonatate (Benzonatate 100 Mg Cap) 200 mg PO TID PRN PRN Reason: COUGH Folic Acid (Folic Acid 1 Mg Tablet) 1 mg PO DAILY [facility] Last Admin: 02/06/24 08:44 Dose: 1 mg Guaifenesin/Dextromethorphan (Guaifenesin/Dm 5 Ml Ucup) 10 ml PO Q6H PRN PRN Reason: COUGH Hydralazine HCl (Hydralazine Hcl 20 Mg/Ml Vial) 10 mg IV Q6HP PRN PRN Reason: Titrate to SBP (MUST DEFINE) Ferric Sodium Gluconate Complex 250 mg/ Sodium Chloride 270 mls @ 135 mls/hr IV Q24H [facility] Stop: 02/07/24 13:59 Last Admin: 02/06/24 13:06 Dose: 270 mls Insulin Human Regular (Insulin Regular (Human) 100 Unit/Ml) 0 unit SQ ACHS [facility]; Protocol Last Admin: 02/06/24 20:30 Dose: 5 unit Ondansetron HCl (Ondansetron 4 Mg/2 Ml Vial) 4 mg IV Q8H PRN PRN Reason: NAUSEA / VOMITING Pantoprazole Sodium (Pantoprazole 40 Mg Inj) 40 mg IVP Q12HR [facility]; Protocol Last Admin: 02/06/24 20:29 Dose: 40 mg Ramipril (Ramipril 5 Mg Cap) 5 mg PO BEDTIME [facility] Last Admin: 02/06/24 20:29 Dose: 5 mg Sodium Chloride (Sodium Chloride 0.9% 10ml Inj) 10 ml IV UD PRN PRN Reason: Diluant Torsemide (Torsemide 20 Mg Tab) 40 mg PO DAILY [facility] Last Admin: 02/05/24 13:59 Dose: 40 mg Assessment/ Plan: Nephrology No dyspnea No chest pain +Appetite No acute events overnight Vitals, medications, blood work and imaging reviewed in the chart General: Oriented x3, Cooperative HEENT: Atraumatic Neck: Supple Respiratory: Normal resp effort Cardiovascular: Edema Gastrointestinal: Soft and benign, Non-distended Musculoskeletal: No clubbing, No contractures Integumentary: No rashes, No cyanosis Neurological: Normal speech Laboratory Data (last 24 hrs) 02/03/24 02/03/24 02/03/24 02:29 02:29 02:29 WBC 7.30 Hgb 9.4 L Hct 27.9 L Plt Count 328 PT 11.1 INR 1.01 Sodium 137 Potassium 4.0 BUN 38 H Creatinine 2.03 H Glucose 165 H Magnesium 1.9 Total Bilirubin 0.3 AST 30 ALT 45 Alkaline Phosphatase 62 Imagings Data: [id number] EXAM DESCRIPTION: CT - Thorax Wo Con - 02/03/2024 8:53 am CLINICAL HISTORY: eval b/l opacities, ?acute/new CHF COMPARISON: Chest Single View dated 02/03/2024; Neck Angio dated 10/29/2023; Renal Ultrasound-Complete dated 10/29/2023 FINDINGS: Chest Wall: 2.7 cm right thyroid nodule. Lungs: Bilateral perihilar nodular ground-glass opacities. Pleura: Small moderate bilateral pleural effusions. Mediastinum/charlie: No pathologic lymphadenopathy. Pulmonary arteries/Aorta: Limited evaluation without contrast. No aortic aneurysm. Heart: Small pericardial effusion. Normal heart size. Coronary artery calcifications. Upper abdomen: No acute abnormality. Bones: No acute abnormality. All CT scans are performed using dose optimization technique as appropriate and may include automated exposure control or mA/KV adjustment according to patient size. IMPRESSION: 1. Perihilar nodular ground-glass opacities and small to moderate bilateral pleural effusions probably representing acute cardiogenic pulmonary edema. 2. Right thyroid nodule measuring 2.7 cm for which nonemergent thyroid ultrasou nd is recommended further evaluation. EXAM DESCRIPTION: US - Renal Ultrasound-Complete - 10/29/2023 1:21 pm CLINICAL HISTORY: andrea Flank pain COMPARISON: No comparisons FINDINGS: Both kidneys are normal in size, shape and echotexture. The right kidney measures 10.3 x 6.5 x 6.4 cm. No hydronephrosis, focal mass or perinephric fluid. The left kidney measures 10.6 x 5.5 x 4.8 cm. No hydronephrosis, focal mass or perinephric fluid. The urinary bladder is incompletely distended without gross abnormality seen. IMPRESSION: Unremarkable renal sonogram. LEFT VENTRICULAR WALL MOTION: NORMAL. DOPPLER/COLOR FLOW: SEE BELOW. COMMENTS: 1. NORMAL LEFT VENTRICULAR EJECTION FRACTION 55-60% WITH NORMAL WALL MOTION. 2. MODERATE DIASTOLIC DYSFUNCTION. 3. MILD TRICUSPID REGURGITATION. 4. MILD MITRAL REGURGITATION. 5. RIGHT VENTRICULAR SYSTOLIC PRESSURE WITH 40-45mmHg (MILDLY ELEVATED) Conclusions/Impression: Stage I ANDREA may be due to diuresis CKD IIIb with Proteinuria -No NSAIDs HTN with CKD/ CHF -Reduce Ramipril 5 qhs Diastolic CHF, A/C -Continue Torsemide daily DM II with CKD -RISS Hypoalbuminemia -Protein supplementation prn Anemia in chronic illness Iron Deficiency 10% -Monitor H&H -Continue Ferrlecit Case reviewed with the Dr. Kohler
[2024-02-07 05:29] VITALS: BMI 25.1
[2024-02-07 06:27] LABS: Hematocrit 26.2 % (39.6-49.0); Hemoglobin 8.7 g/dL (13.6-17.9); MCH 29.5 pg (27.0-35.0); MCHC 33.2 g/dL (32.0-36.0); MCV 88.9 fL (80-100); MPV 7.2 fL (7.6-11.3); Platelets 328 thou/uL (152-406); RBC Red Blood Cell Count 2.94 M/uL (4.33-5.43); Red Cell Distribution Width 15.2 % (12.1-15.2)
[2024-02-07 06:42] LABS: Albumin 2.7 g/dL (3.4-5.0); Anion Gap 9.3 mEq/L (5.0-15.0); Magnesium 2.3 mg/dL (1.6-2.4); Phosphorus 3.4 mg/dL (2.5-4.9); Potassium 4.3 mEq/L (3.5-5.1)
[2024-02-07 10:59] VITALS: O2SAT 97
--- NOTE | 2024-02-07 12:23 | P.DS ---
Admission Date: 02/03/24 Discharge Date: 02/07/24 Disposition: ROUTINE DISCHARGE Discharge Condition: FAIR Reason for Admission: Shortness of breath Brief History of Present Illness: 58-year-old male with past medical history of HTN/DM/HLD/recent TIA,/CKD stage IV with creatinine ranging in the 1.7-2.1 range, chronic elevated troponin presented with sudden onset shortness of breath of 1 day duration. Shortness of breath was initially on exertion but progressed to SOB at rest, associated with orthopnea with paroxysmal nocturnal dyspnea. He denied any increased body swelling. Of note he was recently hospitalized for presumed CVA 3 months ago during which he was noted with persistent elevated troponin in the 400s, he was evaluated by cardiology Dr. Ellsworth, echocardiogram shows mild diastolic dysfunction but EF of 65%. Patient was continued on management with Plavix and PAOLO and did not have any stress test or angiogram scheduled. He states he has been following with Dr. Cali his PCP since then but did not have any cardiology follow-up as outpatient. He stated family history of CAD in a brother. He has never had any cardiac event or VA in the past. On arrival in the ED he was noted with O2 sat of 71% on room air, blood pressure was in the 150s over 70s. He was afebrile, chest x-ray shows acute pulmonary edema. EKG showed normal sinus rhythm with no ST segment changes, troponin of 236. He was admitted for further management. Hospital Course: Patient presented with worsening dyspnea, orthopnea, and was found to have new diagnosis of acute diastolic CHF with bilateral pleural effusions. CT with findings consistent with pulmonary edema / pleural effusions. Cardiology and pulmonology were consulted. Patient was started on lasix and aldactone and had improvement of his symptoms. Troponins were mildly elevated on admission but trended flat. Cardiology recommended stress test to further evaluate however unable to be done as inpatient for next ~3 weeks d/t staffing. Advised to follow up with cardiology in next 1-2 weeks for outpatient stress test. Patient was feeling better, breathing comfortably on room air, and was deemed stable for discharge. Repeat CXR on day of discharge with significant improvement - no acute cardiopulm process visualized. New prescriptions for lasix and spironolactone sent on discharge. During his hospitalization, patient was noted to be anemic with hgb in 8/9s. On further discussion, patient reported dark brownish/black stool since recent CVA in oct 2023 to which he has been on aspirin / plavix since then. Discussed with neuro over the phone, recommended to stop plavix; patient not longer need DAPT at this point. Patient was started on IV protonix BID and received ~1 bag of IV iron while hospitalized. Hemoglobin remained stable in for rest of hospitalization. No transfusions needed. Iron studies this hospitalization consistent with iron deficiency anemia (iron 29, tsat% 10.4%). Patient reports already taking iron at home. Given stable hemoglobin and how slow anemia occurred over the past 3 months, advised patient to follow up with GI as outpatient in the near future for further discussion and to consider EGD/colonoscopy to further evaluate as patient has never had either before. Advised to repeat blood work in ~1 week to recheck CBC/hemoglobin. Hgb on discharge: 8.[address] chest: 2.7 right thyroid nodule. Discussed findings with patient and advised patient to follow up with PCP for further discussion and consider thyroid ultrasound as outpatient in the near future to further evaluate the nodule. Vital Signs/Physical Exam: Temp Pulse Resp BP Pulse Ox 74 F L 74 16 127/69 96 02/07/24 12:00 02/07/24 12:00 02/07/24 12:00 02/07/24 12:00 02/07/24 12:00 General: Alert, In no apparent distress, Oriented x3 HEENT: Mucous membr. moist/pink Neck: Supple, JVD not distended Respiratory: Clear to auscultation bilaterally, Normal air movement Cardiovascular: No edema, Regular rate/rhythm, Normal S1 S2 Gastrointestinal: Normal bowel sounds, Soft and benign, Non-distended, No tenderness Musculoskeletal: No swelling Integumentary: No rashes, No cyanosis Laboratory Data at Discharge: WBC 5.60 thou/uL (4.3-10.9) 02/07/24 05:46 Hgb 8.7 g/dL (13.6-17.9) L 02/07/24 05:46 Hct 26.2 % (39.6-49.0) L 02/07/24 05:46 Plt Count 328 thou/uL (152-406) 02/07/24 05:46 PT 11.1 SECONDS (9.5-12.5) 02/03/24 02:29 INR 1.01 02/03/24 02:29 Sodium 134 mEq/L (136-145) L 02/07/24 05:46 Potassium 4.3 mEq/L (3.5-5.1) D 02/07/24 05:46 BUN 62 mg/dL (7-18) H 02/07/24 05:46 Creatinine 2.39 mg/dL (0.70-1.30) H 02/07/24 05:46 Glucose 131 mg/dL (74-106) H 02/07/24 05:46 Phosphorus 3.4 mg/dL (2.5-4.9) 02/07/24 05:46 Magnesium 2.3 mg/dL (1.6-2.4) 02/07/24 05:46 Total Bilirubin 0.3 mg/dL (0.2-1.0) 02/04/24 04:21 AST 22 U/L (15-37) 02/04/24 04:21 ALT 35 U/L (16-61) 02/04/24 04:21 Alkaline Phosphatase 58 U/L (45-117) 02/04/24 04:21 Triglycerides 100 mg/dL (<150) 02/04/24 04:21 Cholesterol 131 mg/dL (<200) 02/04/24 04:21 HDL Cholesterol 52 mg/dL (40-60) 02/04/24 04:21 Cholesterol/HDL Ratio 2.52 02/04/24 04:21 Home Medications: Amlodipine [Norvasc*] 10 mg PO DAILY 30 Days #30 tab 11/01/23 Atorvastatin Calcium [Lipitor] 40 mg PO BEDTIME 30 Days #30 tab 11/01/23 Folic Acid 1 mg PO DAILY 30 Days #30 tab 11/01/23 Hydralazine [Apresoline*] 50 mg PO BID 30 Days #30 tab 11/01/23 Aspirin [Aspirin EC 81 MG] 81 mg PO DAILY 02/03/24 Cinnamon Bark [Cinnamon] 500 mg PO 02/03/24 Ferrous Sulfate 325 mg PO BID 02/03/24 Pioglitazone HCl 45 mg PO DAILY 02/03/24 glipiZIDE [Glipizide] 10 mg PO BID 02/03/24 Benzonatate [Tessalon Perle*] 200 mg PO TID PRN #30 cap 04/16/24 Guaif/Dm [Robitussin Dm*] 10 ml PO Q6H PRN #118 ml 02/07/24 Torsemide [Demadex*] 40 mg PO DAILY #30 tab 02/07/24 ramipriL [Altace*] 5 mg PO BEDTIME #30 cap 02/07/24 New Medications: ramipriL [Altace*] 5 mg PO BEDTIME #30 cap Torsemide [Demadex*] 40 mg PO DAILY #30 tab Guaif/Dm [Robitussin Dm*] 10 ml PO Q6H PRN #118 ml PRN Reason: Cough Benzonatate [Tessalon Perle*] 200 mg PO TID PRN #30 cap PRN Reason: Cough Physician Discharge Instructions: Physician discharge instructions: Patient presented with worsening dyspnea, orthopnea, and was found to have new diagnosis of acute diastolic CHF with bilateral pleural effusions. CT with findings consistent with pulmonary edema / pleural effusions. Cardiology and pulmonology were consulted. Patient was started on lasix and aldactone and had improvement of his symptoms. Troponins were mildly elevated on admission but trended flat. Cardiology recommended stress test to further evaluate however unable to be done as inpatient for next ~3 weeks d/t staffing. Advised to follow up with cardiology in next 1-2 weeks for outpatient stress test. Patient was feeling better, breathing comfortably on room air, and was deemed stable for discharge. Repeat CXR on day of discharge with significant improvement - no acute cardiopulm process visualized. New prescriptions for lasix and spironolactone sent on discharge. During his hospitalization, patient was noted to be anemic with hgb in 8/9s. On further discussion, patient reported dark brownish/black stool since recent CVA in oct 2023 to which he has been on aspirin / plavix since then. Discussed with neuro over the phone, recommended to stop plavix; patient not longer need DAPT at this point. Patient was started on IV protonix BID and received ~1 bag of IV iron while hospitalized. Hemoglobin remained stable in 8/9s for rest of hospitalization. No transfusions needed. Iron studies this hospitalization consistent with iron deficiency anemia (iron 29, tsat% 10.4%). Patient reports already taking iron at home. Given stable hemoglobin and how slow anemia occurred over the past 3 months, advised patient to follow up with GI as outpatient in the near future for fur ther discussion and to consider EGD/colonoscopy to further evaluate as patient has never had either before. Advised to repeat blood work in ~1 week to recheck CBC/hemoglobin. Hgb on discharge: 8.[address] chest: 2.7 right thyroid nodule. Discussed findings with patient and advised patient to follow up with PCP for further discussion and consider thyroid ultrasound as outpatient in the near future to further evaluate the nodule. Medications: Lasix Spironolactone protonix Stop plavix Follow up: PCP 3-5 days with diary of blood pressure readings GI in 1-2 weeks Followup: Rafael Diallo MD [Primary Care Provider] - 1-2 Weeks Tra Ellsworth MD [ACTIVE - CAN ADMIT] - 1-2 Weeks (Regarding stress test.) Audie Napoles MD [ACTIVE - CAN ADMIT] - 1-2 Weeks (Regarding anemia possible GI bleed) Time spent managing pt's care (in minutes): 33
[2024-02-07 12:28] VITALS: BP 127/69; TEMP 74
--- NOTE | 2024-02-07 21:19 | P.PN ---
Date of Service: 02/07/24 Vital Signs Temp Pulse Resp BP Pulse Ox 74 F L 74 16 127/69 96 02/07/24 12:00 02/07/24 12:00 02/07/24 12:00 02/07/24 12:00 02/07/24 12:00 Assessment/ Plan: Nephrology No dyspnea No chest pain +Appetite No acute events overnight Vitals, medications, blood work and imaging reviewed in the chart General: Oriented x3, Cooperative HEENT: Atraumatic Neck: Supple Respiratory: Normal resp effort Cardiovascular: Edema Gastrointestinal: Soft and benign, Non-distended Musculoskeletal: No clubbing, No contractures Integumentary: No rashes, No cyanosis Neurological: Normal speech Laboratory Data (last 24 hrs) 02/03/24 02/03/24 02/03/24 02:29 02:29 02:29 WBC 7.30 Hgb 9.4 L Hct 27.9 L Plt Count 328 PT 11.1 INR 1.01 Sodium 137 Potassium 4.0 BUN 38 H Creatinine 2.03 H Glucose 165 H Magnesium 1.9 Total Bilirubin 0.3 AST 30 ALT 45 Alkaline Phosphatase 62 Imagings Data: [id number] EXAM DESCRIPTION: CT - Thorax Wo Con - 02/03/2024 8:53 am CLINICAL HISTORY: eval b/l opacities, ?acute/new CHF COMPARISON: Chest Single View dated 02/03/2024; Neck Angio dated 10/29/2023; Renal Ultrasound-Complete dated 10/29/2023 FINDINGS: Chest Wall: 2.7 cm right thyroid nodule. Lungs: Bilateral perihilar nodular ground-glass opacities. Pleura: Small moderate bilateral pleural effusions. Mediastinum/charlie: No pathologic lymphadenopathy. Pulmonary arteries/Aorta: Limited evaluation without contrast. No aortic aneurysm. Heart: Small pericardial effusion. Normal heart size. Coronary artery calcifications. Upper abdomen: No acute abnormality. Bones: No acute abnormality. All CT scans are performed using dose optimization technique as appropriate and may include automated exposure control or mA/KV adjustment according to patient size. IMPRESSION: 1. Perihilar nodular ground-glass opacities and small to moderate bilateral pleural effusions probably representing acute cardiogenic pulmonary edema. 2. Right thyroid nodule measuring 2.7 cm for which nonemergent thyroid ultrasound is recommended further evaluation. EXAM DESCRIPTION: US - Renal Ultrasound-Complete - 10/29/2023 1:21 pm CLINICAL HISTORY: andrea Flank pain COMPARISON: No comparisons FINDINGS: Both kidneys are normal in size, shape and echotexture. The right kidney measures 10.3 x 6.5 x 6.4 cm. No hydronephrosis, focal mass or perinephric fluid. The left kidney measures 10.6 x 5.5 x 4.8 cm. No hydronephrosis, focal mass or perinephric fluid. The urinary bladder is incompletely distended without gross abnormality seen. IMPRESSION: Unremarkable renal sonogram. LEFT VENTRICULAR WALL MOTION: NORMAL. DOPPLER/COLOR FLOW: SEE BELOW. COMMENTS: 1. NORMAL LEFT VENTRICULAR EJECTION FRACTION 55-60% WITH NORMAL WALL MOTION. 2. MODERATE DIASTOLIC DYSFUNCTION. 3. MILD TRICUSPID REGURGITATION. 4. MILD MITRAL REGURGITATION. 5. RIGHT VENTRICULAR SYSTOLIC PRESSURE WITH 40-45mmHg (MILDLY ELEVATED) Conclusions/Impression: Stage I ANDREA may be due to diuresis CKD IIIb with Proteinuria -No NSAIDs HTN with CKD/ CHF -Continue Ramipril 5 qhs Diastolic CHF, A/C -Continue Torsemide daily DM II with CKD -RISS Hypoalbuminemia -Protein supplementation prn Anemia in chronic illness Iron Deficiency 10% -Monitor H&H -Continue Ferrlecit
== END 2024-02-07 13:42 | disposition home or self-care (01) | DRG 280 ==
LOC: ER 02:06 → ERHOLD 05:27 → 4TH 11:58
PROVIDERS: ADMIT Internal Medicine; ATTEND Internal Medicine
PROC: 4A033R1 Measurement of Arterial Saturation, Peripheral, Percutaneous Approach (ICD-10-PCS; principal; 2024-02-03)
DX: I13.0 Hypertensive heart and chronic kidney disease with heart failure and stage 1 through stage 4 chronic kidney disease, or unspecified chronic kidney disease (principal); I50.33 Acute on chronic diastolic (congestive) heart failure; I21.4 Non-ST elevation (NSTEMI) myocardial infarction; J96.01 Acute respiratory failure with hypoxia; N18.4 Chronic kidney disease, stage 4 (severe); N17.9 Acute kidney failure, unspecified; E11.22 Type 2 diabetes mellitus with diabetic chronic kidney disease; D63.1 Anemia in chronic kidney disease; E78.5 Hyperlipidemia, unspecified; E04.1 Nontoxic single thyroid nodule; E88.09 Other disorders of plasma-protein metabolism, not elsewhere classified; I25.2 Old myocardial infarction; R79.89 Other specified abnormal findings of blood chemistry; Z66 Do not resuscitate; Z79.82 Long term (current) use of aspirin; Z79.84 Long term (current) use of oral hypoglycemic drugs; Z79.02 Long term (current) use of antithrombotics/antiplatelets; Z86.73 Personal history of transient ischemic attack (TIA), and cerebral infarction without residual deficits; Z79.899 Other long term (current) drug therapy
CPT/HCPCS: 36415; 36600; 71045; 71250; 80048; 80053; 80061; 80069; 80076; 82805; 82947; 83540; 83735; 83880; 84145; 84443; 84466; 84484; 85025; 85027; 85610; 93005; 93306; 96372; 96374; 99285; C9113; J1650; J1815; J1940; J2916; J7050